=== PATIENT | female | born 1960 | race Caucasian/White ===

== ENCOUNTER 2018-06-28 02:57 | Inpatient (IN) ==
--- NOTE | 2018-06-28 03:34 | PROVIDER DOCUMENTATION ---
HPI-General Adult - General Chief Complaint: Post Op Complaint Stated Complaint: FEVER/VOMITING-POST OP FROM JUNE 10 Time Seen by Provider: 06/28/18 03:21 Source: patient Allergies/Adverse Reactions: Patient Allergies Allergy/AdvReac Type Severity Reaction Status Date / Time No Known Allergies Allergy Verified 06/28/18 05:20 Home Medications: Home Medication List Medication Instructions Recorded Confirmed Last Taken Type Levothyroxine Sodium 100 mcg PO QAM 08/08/17 06/28/18 09/20/17 History Oxybutynin Chloride 5 mg PO BID 08/08/17 06/28/18 09/20/17 History Aspirin 81 mg PO DAILY 09/21/17 06/28/18 09/19/17 History Acetaminophen 2 tab PO Q8HR 06/28/18 06/28/18 Unknown History Ferrous Sulfate [Iron] 1 tab PO DAILY 06/28/18 06/28/18 Unknown History Oxycodone HCl [Roxicodone] 1 tab PO Q6H PRN PRN 06/28/18 06/28/18 Unknown History Polyethylene Glycol 3350 [Miralax] 17 gm PO DAILY 06/28/18 06/28/18 Unknown History Promethazine [Phenergan] 12.5 mg PO Q6H PRN PRN 06/28/18 06/28/18 Unknown History Sennosides [Senna] 1 tab PO BID 06/28/18 06/28/18 Unknown History - History of Present Illness -Gen Adult Nature of Presenting Problems: 58 y/o female presents to the ED with complaint of fever up to 103 tonight. 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 Patient transferred to [facility] on 05/25/18 for further evaluation of postop abdominal pain then sent home. Patient reports that [facility] did not find anything to explain abdominal pain. Followed by surgeon, Dr. Delong and Dr. Colindres, , and Dr. Timmons in [place]. Patient currently denies abdominal pain, dysuria, productive cough. Location of Pain/Injury: reports: none Onset/Duration: reports: this evening Timing: reports: improving Associated Symptoms: reports: fever/chills Review of Systems - Adult - REVIEW OF SYSTEMS - ADULT Constitutional: reports: chills, fever Eyes: denies: discharge Ears, Nose, Mouth & Throat: denies: throat pain Cardiovascular: denies: chest pain Respiratory: reports: see HPI. denies: cough Gastrointestinal: reports: see HPI. denies: abdominal pain Genitourinary: denies: dysuria Musculoskeletal: reports: no symptoms reported Integumentary: reports: no symptoms reported Neurological: denies: headache/migraines Psychiatric: reports: anxiety Hematologic/Lymphatic: reports: no symptoms reported Allergic/Immunologic: reports: no symptoms reported All Other Systems: Reviewed and Negative Past History - Adult - PAST MEDICAL HISTORY-ADULT Review of Records: reports: Old Records Reviewed, Nursing Assessment Review, Medications Reviewed, Social history reviewed & non-contributory. Major Childhood Illnesses: reports: denies history Cardiovascular: reports: denies history Respiratory: reports: denies history Gastrointestinal: reports: denies history Musculoskeletal: reports: denies history Neurological: reports: denies history Psychiatric: reports: anxiety Endocrine/Immune: reports: denies history - PRIOR SURGERIES/PROCEDURES Surgical/Procedure History: reports: recent surgery, appendectomy, cholecystectomy, hysterectomy - IMMUNIZATION STATUS Childhood Immunizations: See Nurse Assessment Flu Vaccine: See Nurse Assessment Physical Exam-General - CONSTITUTIONAL General Appearance: alert, no apparent distress, obese - EYES Eyes: other (clear) - HEAD, EARS, NOSE, MOUTH & THROAT HENMT: moist mucous membranes - NECK Neck: non-tender, full range of motion, supple - RESPIRATORY Respiratory: no respiratory distress, no accessory muscle use, decreased breath sounds - CARDIOVASCULAR Cardiovascular: regular rate, rhythm - GASTROINTESTINAL (ABDOMEN) Abdominal Exam: non tender, soft. negative: guarding, rebound - MUSCULOSKELETAL Back Exam: normal inspection, no CVA tenderness Extremity: normal range of motion, non-tender Peripheral Pulses: radial (R): 2+, radial (L): 2+ - SKIN Integumentary: normal color, normal turgor, warm/dry - NEUROLOGIC Neurologic: grossly normal - PSYCHIATRIC Psych/Mental Status: anxious Progress - PLAN OF CARE/RESULTS Progress/Plan/Lab Results: Vital Signs - 8 hr 06/28/18 03:05 Temperature 100.8 F H Pulse Rate 105 H Respiratory Rate 22 Blood Pressure 145/78 O2 Sat by Pulse Oximetry 85 L Result Diagrams: 06/28/18 03:47 06/28/18 03:47 - XRAY 1 XRAY Study: Chest Impression: Abnormal XRAY Interpretation: LLL infiltrate - CONSULTS/PCP/HOSPITALIST Notification #1 *Consult/PCP/Hospitalist*: Dr. Lancaster, hospitalist Time Discussed: 06:10 Consult Disposition: Admit Departure - Departure Date of Disposition Decision: 06/28/18 Time of Disposition Decision: 06:18 DIAGNOSIS: Appendix carcinoma, Hypoxemia LLL pneumonia Qualifiers: Pneumonia type: due to unspecified organism Qualified Code(s): J18.1 - Lobar pneumonia, unspecified organism Disposition: ADMITTED INPATIENT 09 Certified Medical Emergency: Emergent Condition: Stable Referrals and Follow-Ups: Ric Timmons MD [Primary Care Provider] - - Critical Care Note This patient required my direct & personal management of CC.: No Attestation - Physician/ ABBEY Attestation Patient care was provided by Advanced Practice Provider:: No The physician spent face to face time with patient:: Yes Advanced Practice Provider documentation review:: Supervising physician onsite and consulted in the evaluation and care of this patient. The physician did have a face to face encounter with the patient.
[2018-06-28] MEDS ORDERED: DILAUDID IV ONE (04:15)
[2018-06-28] MEDS ORDERED: ZOFRAN IV ONE (04:15)
[2018-06-28 04:24] LABS: INR 1.3; PROTIME 17.2 Seconds (11.0-16.0)
[2018-06-28 04:25] LABS: BASO# 0.01 X1000 (0.0-0.2); BASO% 0.3 % (0.0-0.8); HEMATOCRIT 34.8 % (37.0-47.0); HEMOGLOBIN 10.5 g/dL (12.0-16.0); LYMPH# 0.15 X1000 (1.2-3.4); LYMPH% 4.3 % (20.5-51.1); MCH 26.2 PG (27-31); MCHC 30.2 g/dL (33-37); MCV 86.8 FL (81-99); MONO# 0.32 X1000 (0.11-0.59); MONO% 9.2 % (1.7-9.3); MPV 9.1 FL (7.4-10.4); NEUT% 86.2 % (42.2-75.2); PLT 190 X1000 (130-400); PTT 37.3 Seconds (22.3-41.8); RBC 4.01 XMIL (4.2-5.4); RDW 19.9 % (11.5-14.5); WBC 3.48 X1000 (4.8-10.8)
[2018-06-28] MEDS ORDERED: VANCOMYCIN 1 GM/NS 1 GM/250 ML IVPB IV ONE (04:27)
[2018-06-28] MEDS ORDERED: LEVAQUIN 750 MG/D5W 750 MG/150 ML IVPB IV ONE (04:27)
[2018-06-28 04:38] LABS: AGAP 12; ALBUMIN 3.2 g/dL (3.5-5.0); ALKALINE PHOSPHATASE 222 U/L (32-104); BUN 5 mg/dL (8-22); CALCIUM 8.2 mg/dL (8.8-10.2); CHLORIDE 103 mmol/L (98-107); COSMO 279; CREATININE 0.8 mg/dL (0.5-0.9); ESTIMATED GFR > 60; GLUCOSE 107 mg/dL (70-104); GOT 14 U/L (10-30); GPT < 5 U/L (10-36); POTASSIUM 3.2 mmol/L (3.5-5.1); SODIUM 141 mmol/L (136-145); TCO2 26 mmol/L (25-35); TOTAL BILIRUBIN 0.72 mg/dL (0.20-1.00); TOTAL PROTEIN 6.3 g/dL (6.3-8.3)
--- NOTE | 2018-06-28 05:44 | Diag Imaging Result Doc PS360 ---
EXAM: CHEST-2 VIEWS HISTORY: fever TECHNIQUE: Chest two views COMPARISON: 02/05/2013 FINDINGS: The lungs are well expanded. The heart is not enlarged. The vessels are not distended. There is a right jugular portacatheter. No pneumothorax. There are left basilar infiltrates. There is a small to moderate-sized left pleural effusion with a small right pleural effusion. Mild to moderate scoliosis. IMPRESSION: Left basilar infiltrates with pleural effusions Electronically signed by Eligio Tripathi 06/28/2018 5:42 AM
[2018-06-28 07:39] LABS: URINE SOURCE CLEAN CATCH
[2018-06-28 07:45] LABS: BILIRUBIN URINE NEGATIVE (NEGATIVE); BLOOD URINE MODERATE (NEGATIVE); COLOR YELLOW; GLUCOSE URINE NEGATIVE (NEGATIVE); KETONE URINE 10 mg/dL (NEGATIVE); LEUKOCYTES URINE MODERATE (NEGATIVE); NITRITE URINE POSITIVE (NEGATIVE); PROTEIN URINE 50 mg/dL (NEGATIVE); SP GRAVITY URINE 1.018; TURBIDITY URINE HAZY (CLEAR); UROBILINOGEN URINE 3 mg/dL (NORMAL)
[2018-06-28 07:46] LABS: UR EPITHELIAL CELLS <10 /HPF (<10); URINE BACTERIA 4+ /HPF; URINE WBC TNTC /HPF (<10)
[2018-06-28] MEDS ORDERED: VANCOMYCIN IV PER PHARMACY MISC SCH (08:10)
[2018-06-28] MEDS ORDERED: TYLENOL PO PRN (08:10)
--- NOTE | 2018-06-28 08:44 | EKG Report ---
Test Performed on : 06/28/2018 03:19:30 AM Test Reason : ED. NO EKG ORDER FOR MUSE Blood Pressure : / mmHG Vent. Rate : 104 BPM Atrial Rate : 104 BPM P-R Int : 154 ms QRS Dur : 074 ms QT Int : 342 ms P-R-T Axes : 046 -06 046 degrees QTc Int : 449 ms Sinus tachycardia. Possible Left atrial enlargement Low voltage QRS Possible Inferior infarct , age undetermined Abnormal ECG No previous ECGs available Unconfirmed Result
[2018-06-28] MEDS: NS 1,000 ML IV SCH (08:54)
[2018-06-28] MEDS: ZOSYN 3.375 GM in NS 50 ML IV SCH ×3 (08:55→20:58)
[2018-06-28] MEDS ORDERED: LOVENOX SUBQ SCH (09:00)
[2018-06-28] MEDS ORDERED: PRILOSEC PO SCH (09:00)
[2018-06-28] MEDS ORDERED: VANCOMYCIN 2,500 MG in NS 500 ML IV ONE (09:00)
[2018-06-28] MEDS ORDERED: MIRALAX PO SCH (09:00)
[2018-06-28] MEDS ORDERED: SENOKOT PO SCH (09:00)
[2018-06-28] MEDS ORDERED: SYNTHROID PO SCH (09:00)
[2018-06-28] MEDS: ZOFRAN IV PRN (09:30)
[2018-06-28] MEDS: ASPIRIN PO SCH (09:33)
[2018-06-28] MEDS ORDERED: POTASSIUM CHLORIDE 40 MEQ/SWI 40 MEQ/100 ML IVPB IV ONE (10:30)
--- NOTE | 2018-06-28 11:40 | Diag Imaging Result Doc PS360 ---
EXAM: CT THORAX/ABD/PELVIS W/CON 06/28/2018 HISTORY: history of appendiceal cancer, pna TECHNIQUE: This exam was performed using automated exposure control, adjustment of mA or kV according to patient size, and/or use of iterative reconstruction technique. COMMENT: Thorax: There are no previous thoracic studies. The abdomen is compared with the previous examination of 06/22/2018. There is no evidence of significant adenopathy. The aorta is not distended and there is no evidence of dissection. There is a left pleural effusion. There is dependent atelectasis in both lower lobes more so in the left lower lobe. The possibility of pneumonia cannot be excluded. ABDOMEN: Atelectasis in the left lower lobe was also present at the time the previous study of 06/22/2018 as there was atelectasis in the posterior and medial portions of the right lower lobe in the costophrenic sulcus. There is splenomegaly the spleen measuring almost 14.7 cm in transverse dimension. This is not changed significantly since the previous study. There is ascites as there was previously. There is some intrahepatic biliary dilatation as there was previously. There is nodular enlargement of the medial lobe of the right adrenal gland which has not changed significantly. There is some stranding in the pararenal spaces. There is no evidence of abdominal aortic aneurysm. The liver is stable in appearance. There is oral contrast throughout the colon and small bowel. The graft pelvis: There is some fluid density within the inferior abdominal and pelvic subcutaneous fat in the midline probably related to the incision and likely due to a seroma, the CT density being less than 6 Hounsfield units. The urinary bladder is not distended. There has been hysterectomy. There is scoliosis of the lumbar spine with convexity to the left. The regional skeleton is stable in appearance. IMPRESSION: 1. Left pleural effusion. Bilateral lower lobe atelectasis versus pneumonia. 2. Ascites. 3. Intrahepatic biliary dilatation, stable. 4. Right adrenal nodule, stable. 5. Postsurgical changes with seroma. Electronically signed by Shad Lopez 06/28/2018 11:37 AM
[2018-06-28 11:56] LABS: IRON SATURATION 7 %; TIBC 240 ug/dL; TOTAL IRON 17 ug/dL (49-151); UNBOUND IRON 223 ug/dL (112-346)
[2018-06-28 12:29] LABS: FERRITIN 95 ng/mL (13-150)
[2018-06-28] MEDS ORDERED: VENOFER 200 MG in NS 150 ML IV ONE (12:51)
--- NOTE | 2018-06-28 12:52 | HISTORY AND PHYSICAL ---
PRIMARY CARE PHYSICIAN: Dr. Ric Timmons PRIMARY ONCOLOGIST HERE: Dr. Delores Capone PRIMARY ONCOLOGIST AT [facility]: Dr. Nuzhat Delong who also performed a significant surgery called HIPEC on 06/10/2018. Dr. Nuzhat Delong's contact information is [phone]. Apparently Dr. Delong will also be trying to keep in touch with us. She is aware of the patient's admit. PRIMARY GENERAL SURGEON: Dr. Cleveland Timmons who removed her appendix. CHIEF COMPLAINT: Fever of 103, vomiting and diarrhea. HISTORY OF PRESENT ILLNESS: Ms. Makeda Donaldson is a 58-year-old female with a medical history of appendiceal cancer with appendectomy by Cleveland Timmons and diagnosis in 07/2017. She was then referred to Delores Capone, had 14 rounds of chemotherapy treatment performed, was seen by Dr. Nuzhat Delong who then performed on 06/10/2018 an HIPEC which stands for heated or hyperthermic intraperitoneal chemotherapy at [facility]. Apparently this is a really big surgery, it can take up to 12 hours. She is only the 103rd person to have this surgery or procedure performed at [facility]. Apparently this procedure or surgery is not even performed at [facility]. There is supposed to be a 6 to 8 week recovery period that consists of some abdominal discomfort and nausea. She was admitted to [facility] from 06/10/2018 to 06/17/2018. Her incision is from the midline top of the abdomen all the way down to nearly the pelvic area with currently just Steri-Strips. The sites is very dry and no signs or symptoms of infection. She has positive bowel sounds in her abdomen. Her abdomen is also soft. She states that she was informed if she had fever to seek medical attention. Also noted, she came here on 06/22/2018 with some right lower quadrant abdominal pain, and she was transferred from our ER to [facility] where she stayed from 06/22/2018 to 06/24/2018. Pain improved. There apparently was some residual fluid in the abdomen on an ultrasound there, and she was discharged home. Around 0130 this morning, she woke up with a fever of 103. She states that she has been getting short of breath but not coughing up anything. She does not even have a cough. She also has been having severe nausea with emesis around 1 to 2 times per day that is orange to yellow in color. She has been having diarrhea, around 3 or 4 bowel movements per day that is anywhere from brown to black in color, but she does take iron supplementation. She has had poor p.o. intake due to the intractable nausea. She has tried things like mostly banana popsicles, small thin slices of deli ham, peaches in a fruit cup, scrambled eggs, just small soft things, and she is allowed a GI soft diet. Here, workup revealed that she has been afebrile, but around 3:00 this morning, her temperature was 100.8 on admission, and that was after taking 650 mg of Tylenol around 0130 when she woke up with a fever. She does actually have a significant amount of bacteria in the urine, so it appears she has urinary tract infection which we are waiting on a culture. Lactate is normal. White count is normal, or a little bit low. She will be given IV fluid hydration, and she is being started on broad spectrum antibiotics. Flu was negative. Vitals are stable, and she will be admitted to the medical floor for further treatment and workup. PAST MEDICAL HISTORY: 1. Appendiceal cancer, status post appendectomy and chemotherapy x14. Also HIPEC at [facility]. 2. Hypothyroidism. 3. Iron deficiency anemia. 4. Anxiety. 5. Claustrophobia. 6. Urinary incontinence. PAST SURGICAL HISTORY: 1. Cholecystectomy. 2. Hysterectomy. 3. Appendectomy in 07/2017. 4. Heated hyperthermic intraperitoneal chemotherapy, in short is called HIPEC, a very rare, infrequent surgical chemotherapy that is performed. She just had on 06/10/[address] Nuzhat Delong. 5. Right chest port placed in 08/2017. SOCIAL HISTORY: Denies tobacco, alcohol or illicit drug use. Her of 41 years is at the bedside. They did not have any kids together. They have 3 grown godchildren. 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. For 2 months prior to having surgery, she walked 20 minutes per day for at least 2 months. FAMILY HISTORY: Mother had congestive heart failure and coronary artery disease, at 88. Father had myocardial infarction and at 58. One sister from leukemia. One brother with severe stroke and at 70. Another brother with congestive heart failure which he at 40 from, but he was severely obese. Several other siblings that had diabetes type 2 and heart disease. She was the youngest of 8 siblings. ALLERGIES: No known drug allergies. HOME MEDICATIONS: 1. Tylenol 1000 mg p.o. every 8 hours p.r.n. 2. Aspirin 81 mg p.o. daily. 3. Iron 325 mg p.o. daily at lunch. 4. Synthroid 100 mcg p.o. daily. 5. MiraLAX 17 g p.o. daily, but she has not been taking this due to diarrhea. 6. Oxybutynin chloride 5 mg p.o. twice daily. 7. Phenergan 12.5 mg p.o. every 6 hours p.r.n. 8. Oxycodone HCl 5 mg p.o. every 6 hours p.r.n. 9. Senokot 8.6 mg p.o. twice daily, but she has not been taking this, either. REVIEW OF SYSTEMS: A 14-point review of systems are complete, and all were negative except for those mentioned in the HPI. She does have a little bit of right lower quadrant tenderness from time to time. Denies any chest pain but states that fever started around 1:30 this morning, and she is complaining of diarrhea as well with nausea and vomiting. PHYSICAL EXAMINATION: VITAL SIGNS: Temperature is 98.6, heart rate 91, respiratory rate 16, blood pressure 114/62, O2 saturation is 99% on 3 L. GENERAL: Ms. Makeda Donaldson is a 58-year-old female. She is in no acute distress. She is able to answer questions appropriately. HEENT: Normocephalic and atraumatic. Pupils are equal, round and reactive to light. Extraocular movements were intact. Mucous membranes are dry. NECK: Trachea midline. CARDIOVASCULAR: S1, S2. Regular rate and rhythm. No rubs, gallops or murmurs. She has 1+ pitting edema in the lower extremities, 2+ dorsalis pedal pulses, 2+ radial pulses. Negative JVD or carotid bruits. PULMONARY: Clear to auscultation with some mild, very fine rhonchi in the left lower lobe posteriorly. No accessory muscle use or work of breathing noted. She is on 3 L and saturating very well at 99%, tolerating that well. GASTROINTESTINAL: Soft, mild tenderness in the right lower quadrant. Midline abdominal incision with Steri-Strips, with incision well approximated. No dehiscence and is healing very well. EXTREMITIES: Moves all extremities equally with full range of motion. NEUROLOGICAL: Alert and oriented x4. Follows commands. Sensory is intact. SKIN: Warm, dry and intact except for midline abdominal incision which is the full length of the abdomen with Steri-Strips intact, well approximated, no dehiscence, healing very well. DIAGNOSTIC DATA: White blood cells 3000, hemoglobin 10, hematocrit 34, platelet count 190. INR is 1.30. PTT is 37.3. Sodium is 141, potassium 3.2, BUN is 5, creatinine 0.8, glucose 107, calcium 8.2, bilirubin is 0.72, AST is 14, ALT is less than 5. Albumin 3.2. Lactate is 0.8. Urinalysis with 50 protein, 10 ketones, moderate blood, positive nitrites, 3 urobilinogen, moderate leukocytes, too numerous to count white blood cells, 10 to 20 red blood cells and 4+ bacteria. IMAGING: Chest x-ray with left basilar infiltrates with pleural effusions. EKG shows sinus tachycardia with rate of 104, QTC of 449. ASSESSMENT AND PLAN: 1. History of appendiceal cancer, appendectomy in 07/2017. She did heated hyperthermic intraperitoneal chemotherapy, or HIPEC, at [facility] on 06/10/2018 and 14 chemotherapy treatments that she has completed. Dr. Delores Capone managed chemotherapy treatments. Dr. Nuzhat Delong performed the HIPEC at [facility] on 06/10/2018. Dr. Cleveland Timmons diagnosed and did the surgery of appendectomy in 07/2017. Consult Dr. Delores Capone. We will be getting an abdominal CT with oral contrast. She still has some right lower quadrant abdominal tenderness. Apparently at [facility], she was seen between 06/22/2018 and 06/24/2018 with the right lower quadrant abdominal tenderness, and the family reports that there was just some residual fluid in the abdomen. Her [facility] stay for the surgery was from 06/10/2018 to 06/17/2018, and old records have been requested. Her oncologist, Neto Delong at [facility], phone number is [phone], and she is also aware of the patient's admission and will be checking up on her. The midline abdominal incision is with Steri- Strips, it is healing well. There are no signs or symptoms of infection. There are no areas of dehiscence. Her diet prescribed to her from [facility] is GI soft diet which we will continue. She does have some mild nutritional deficit, as she has not been able to eat very well due to the nausea, vomiting and diarrhea that she has had on a daily basis. We will get stool samples. We will alternate between Zofran and Phenergan. She also complained of the stool being black in color, so we will get a sample to rule out for occult blood. 2. Complaints of fever. No signs of sepsis. White blood cell count normal. She has left lower lobe pneumonia along with the urinary tract infection. She has been started on some IV fluids, vancomycin and Zosyn. Tylenol as needed for fever. We will wait to see results of cultures on the urine, the blood, and if she can produce a sputum sample that has been ordered as well and stool studies. 3. Iron deficiency anemia. Her hemoglobin is 10, hematocrit 34. She has had a little bit of complaint of black stools, but she is on iron supplementation at home. We will go ahead and sample the stool to rule out any blood in that. We will do IV Protonix because she does have intractable nausea and vomiting. Anemia labs have been ordered. 4. Hypokalemia, likely secondary to vomiting and diarrhea, but we will give 40 IV today. 5. Mild protein calorie malnutrition. We will order a prealbumin for in the morning. Do a nutritional consult which is likely due because she has not been able to eat very well. She denies any weight loss at this time. She is on a GI soft diet. 6. DVT prophylaxis with Lovenox. 7. The patient and family are requesting Dr. Ric Timmons be verbally notified of the patient's admit, which I will do. Dictated by HUSAM Gresham for Sanchez Gaona MD Addendum: Patient seen and examined by myself. Agree with HUSAM note. It reflects my assessment and plan. Patient is being admitted to hospital for fever. We do not know the source of infection at this point. Will order blood and urine culture. Will start broad spectrum antibiotics and will order a CT chest, abdomen and pelvis. Will monitor patient closely. cc: HUSAM Gresham MD [facility]ITAL[facility]ina
[2018-06-28] MEDS: PROTONIX IV SCH ×2 (13:24→20:56)
[2018-06-28] MEDS: PHENERGAN IV PRN ×3 (13:24→20:58)
[2018-06-28] MEDS: DITROPAN PO SCH ×2 (13:25→20:57)
--- NOTE | 2018-06-28 13:27 | HEMO/ONC CONSULTATION ---
DATE: 06/28/2018 This is HUSAM Saunders dictating for Dr. Delores Capone MD. REFERRING PHYSICIAN: Dr. Lawrence. REASON FOR REFERRAL: Appendiceal carcinoma, known to our service. HISTORY OF PRESENT ILLNESS: Ms. Makeda Donaldson is a very pleasant 58-year-old woman with appendiceal carcinoma who is admitted to [facility] for left lower lobe pneumonia. She reports a fever as high as 103 degrees Fahrenheit. She recently underwent a resection at [facility] on 06/10/2018. She is recovering well from her surgery. She reports that she was admitted last weekend for uncontrolled nausea, vomiting and pain, but that has since resolved. Her kay have been removed and the incision is healing well. She is going to be admitted on observation with IV antibiotic coverage including vancomycin and Zosyn. She is also on Lovenox for DVT prophylaxis. The Hematology Oncology Service was placed on consult for further workup and treatment options. PAST MEDICAL HISTORY: Appendiceal carcinoma, bladder cancer, hypothyroidism, constipation. PAST SURGICAL HISTORY: Tubal ligation, cholecystectomy, partial abdominal hysterectomy, laparoscopic appendectomy, port placement. FAMILY HISTORY: Positive for leukemia in her sister. No other malignancies or hematological disorders. SOCIAL HISTORY: The patient denies alcohol, tobacco or illicit drug use. 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 ALLERGIES: No known drug allergies. MEDICATIONS: As per medication sheet. REVIEW OF SYSTEMS: As per HPI. Otherwise a 12-point review of systems was negative. PHYSICAL EXAMINATION: General: The patient appears to be in no apparent distress. Vital Signs: Blood pressure 132/71, pulse 94, respirations 16, temperature 98.3 degrees Fahrenheit, O2 saturation 98% on room air. HEENT: Head is normocephalic and atraumatic. Mucosa is pale and moist. Pupils reactive to light. Oropharynx clear. Neck: Supple. No lymphadenopathy or thyromegaly. Cardiovascular: S1, S2. Regular rate and rhythm. No murmurs noted. Respiratory: Decreased breath sounds to the left lower lobe. No rhonchi, rales or wheezing noted. Gastrointestinal: Soft, tender, nondistended. Positive for bowel sounds. Midline surgical incision healing well with Steri-Strips applied. No evidence of bleeding. Neurologic: Gait not assessed. Extremities: No edema. Skin: Pale. LABORATORY DATA: Total white blood cell count 3.48, hemoglobin 10.5, hematocrit 34.8, platelet count 198,000. Iron 17, TIBC 240, iron saturation 7, ferritin 95. Total bilirubin 0.72, AST 14, ALT less than 5, alkaline phosphatase 222, albumin 3.2, total protein 6.3, sodium 141, potassium 3.2, chloride 103, BUN 5, creatinine 0.8, glucose 107, calcium 8.2, phosphorus 2.8, magnesium 1.7. ASSESSMENT AND PLAN: 1. Appendiceal carcinoma status post 14 cycles of FOLFOX, completed an May of 2018. She underwent a resection at [facility] by Dr. Jaya Zarate on 06/10/2018. She has a follow up at [facility] on 07/02/2018. 2. Left lower lobe pneumonia. Agree with vancomycin and Zosyn as well as cultures. 3. Deep venous prophylaxis. Agree with Lovenox 40 mg subcutaneous daily. 4. Anemia secondary to iron deficiency. Iron saturation is 7%. We will give Venofer intravenous. Thank you for this consultation and allowing us to take part in the care of this patient. We will follow along with you. cc: Delores Capone MD I have seen and examined the patient and the above note reflects my history, physical, assessment and plan. Delores Capone MD [facility]
[2018-06-28] MEDS: OXY IR PO PRN ×2 (14:44→20:57)
[2018-06-28] MEDS: DUONEB (A & A) INH PRN (19:48)
[2018-06-28] MEDS: SODIUM CHLORIDE 0.9% INJ PRN (20:57)
[2018-06-28] MEDS: CARAFATE LIQUID PO SCH (20:57)
[2018-06-29] MEDS: NS 1,000 ML IV SCH ×3 (02:06→22:25)
[2018-06-29] MEDS: ZOSYN 3.375 GM in NS 50 ML IV SCH ×4 (02:07→20:20)
[2018-06-29] MEDS: CARAFATE LIQUID PO SCH ×2 (02:25→09:55)
[2018-06-29] MEDS: VANCOMYCIN 2,000 MG in NS 500 ML IV SCH ×2 (03:39→22:25)
[2018-06-29] MEDS: OXY IR PO PRN ×4 (03:39→22:25)
[2018-06-29] MEDS: SYNTHROID PO SCH (06:18)
[2018-06-29 06:46] LABS: BASO# 0.02 X1000 (0.0-0.2); BASO% 0.6 % (0.0-0.8); EOS# 0.02 X1000 (0.0-0.7); EOS% 0.6 % (0.0-10.0); HEMATOCRIT 23.4 % (37.0-47.0); HEMOGLOBIN 6.6 g/dL (12.0-16.0); IMM GRAN# 0.02 X1000 (0.0-0.04); IMM GRAN% 0.6 % (0.0-0.5); LYMPH# 0.42 X1000 (1.2-3.4); LYMPH% 11.8 % (20.5-51.1); MCH 25.1 PG (27-31); MCHC 28.2 g/dL (33-37); MONO% 16.9 % (1.7-9.3); MPV 9.2 FL (7.4-10.4); NEUT# 2.47 X1000 (1.4-6.5); NEUT% 69.5 % (42.2-75.2); PLT 194 X1000 (130-400); RBC 2.63 XMIL (4.2-5.4); RDW 19.4 % (11.5-14.5); WBC 3.55 X1000 (4.8-10.8)
[2018-06-29 06:55] LABS: HEMOGLOBIN A1C 4.5 % (4.8-6.0)
[2018-06-29 06:56] LABS: AGAP 11; ALB/GLOB RATIO 0.9; ALBUMIN 2.7 g/dL (3.5-5.0); ALKALINE PHOSPHATASE 183 U/L (32-104); BUN 6 mg/dL (8-22); CALCIUM 7.8 mg/dL (8.8-10.2); CHLORIDE 107 mmol/L (98-107); COSMO 278; CREATININE 0.7 mg/dL (0.5-0.9); ESTIMATED GFR > 60; GLUCOSE 84 mg/dL (70-104); GOT 13 U/L (10-30); GPT < 5 U/L (10-36); MAGNESIUM 1.7 mg/dL (1.5-2.7); PHOSPHORUS 2.7 mg/dL (2.7-4.5); POTASSIUM 3.6 mmol/L (3.5-5.1); SODIUM 141 mmol/L (136-145); TCO2 23 mmol/L (25-35); TOTAL BILIRUBIN 0.48 mg/dL (0.20-1.00); TOTAL PROTEIN 5.6 g/dL (6.3-8.3)
[2018-06-29 08:01] LABS: PREALBUMIN 3.5 mg/dL (20-40)
[2018-06-29 08:02] LABS: FREE T4 1.2 ng/dL (0.93-1.70); TSH 3.96 uIUmL (0.27-4.20)
[2018-06-29] MEDS: PROTONIX IV SCH ×3 (09:53→23:45)
[2018-06-29] MEDS: SODIUM CHLORIDE 0.9% INJ SCH (09:54)
[2018-06-29] MEDS: ASPIRIN PO SCH (09:54)
[2018-06-29] MEDS: DITROPAN PO SCH ×2 (09:54→20:21)
[2018-06-29] MEDS: PHENERGAN IV PRN ×3 (10:08→18:31)
[2018-06-29 11:12] LABS: HEMATOCRIT 24.9 % (37.0-47.0)
--- NOTE | 2018-06-29 13:07 | PROGRESS NOTE ---
DATE: 06/29/2018 SUBJECTIVE: Ms. Makeda Donaldson is a 58-year-old female. She is in no acute distress. She is able to answer questions appropriately. She states she actually feels a little bit better than she did yesterday. The abdominal pain has moved from right to mid lower quadrant and tenderness. She still continues to have nausea but that is also improved as well. Denies any fever or chills or any other type of pain. Denies shortness of breath. She also states she is still continuing to have some black stools. OBJECTIVE: Vital signs: Temperature 97.9, heart rate 89, respiratory rate 18, blood pressure 131/68, O2 saturation 100% on 2 L nasal cannula and 92% on room air. General: Ms. Makeda Donaldson is a 58-year-old female. She is in no acute distress. She is resting comfortably in bed, was a little drowsy from receiving her pain medicine. Able to answer questions appropriately. Cardiovascular: S1, S2. Regular rate and rhythm. No rubs, gallops, or murmurs. She has 1+ pitting edema in the lower extremities, +2 dorsalis and radial pulses. Negative for JVD and carotid bruits. Pulmonary: Clear to auscultate bilateral breath sounds. No accessory muscle use or work of breathing noted, tolerating 2 L nasal cannula. GI: Tender in the right lower to mid quadrant with palpation. Positive bowel sounds x4. Midline incision dry, intact, well-approximated, no signs or symptoms of infection. Neurologic: A and O x3, follows commands. Sensory is intact. Skin: Warm, dry, intact. Incision intact on the midline abdomen, but pale. LABORATORY DATA: Hemoglobin and hematocrit 7 and 24.9, white blood cells 3, platelet count 194. Sodium 141, potassium 3.6, BUN 6, creatinine 0.7, glucose 84. Hemoglobin A1c is 4.5. Calcium 7.8. Phosphorus 2.7. Magnesium 1.7. Iron level 17. Bilirubin 0.48, AST 13, ALT less than 5, alkaline phosphatase is 183, albumin 2.7, prealbumin is 3.5. Triglycerides 75, total cholesterol 100, HDL 40. Folate is 31. TSH 3.96, free T4 is 1.20. MICRO RESULTS: Stool positive for occult blood. C. difficile toxin and antigen negative. Stool culture negative. Stool white blood cells few. Sputum is pending. Urine culture no growth. Influenza negative. Peripheral stick blood culture no preliminary results yet. The preliminary blood culture from the Port-A-Cath is resulting with gram-negative rods. IMAGING: For today none, but yesterday had chest, abdomen and pelvic CT showed a left pleural effusion, bilateral lower lobe atelectasis versus pneumonia, ascites, intrahepatic biliary dilatation which is stable, right adrenal nodule which is stable, postsurgical changes with seroma. ASSESSMENT AND PLAN: 1. 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 She has received 14 chemotherapy treatments followed by Dr. Delores Capone here and then at [place] Dr. Nuzhat Delong, whose contact number is . There is suppose to be a followup appointment with her on I believe Sunday or Sunday. 2. Likely gastrointestinal bleed versus severe gastritis with right lower to mid abdominal quadrant tenderness and persistent nausea with black stools. Stool is positive for occult blood. Her hemoglobin dropped from 10 down to 7 overnight. She is pale- looking. Her vital signs are stable. She is on Protonix and Carafate. Will switch her from a GI soft to a clear liquid diet and consult Dr. Guillen with Gastroenterology to evaluate for EGD or check for H. pylori. She will receive 1 unit of packed red blood cells. 3. Iron-deficiency anemia. Yesterday, she received Venofer 200 mg 1 time dose with iron level 17, total iron-binding capacity 240, saturation 7, unsaturation 223, ferritin 95, folate 31, vitamin B12 is 474. 4. Left lower lobe pneumonia. Nebulizers as needed, oxygen as needed. Sputum culture just sent. She is on vancomycin and Zosyn for now. 5. Urinary tract infection. Urine had nitrites. She had 4+ bacteria but so far the culture is actually coming back negative. There were urinary symptoms of burning, and again she is on a gram-negative coverage antibiotic, which we will continue for now, and will continue with some IV fluids as well. 6. Right Port-A-Cath culture is showing gram-negative rods. The peripheral culture is not showing anything at this point. She did have fever a little bit last night up to 100.5, around 7 last night was her last fever. So, Dr. Lewis is going to be consulted due to the multiple infections. She has been lactate normal. 7. More like a moderate or may be even severe protein calorie malnutrition. Her prealbumin was significantly low at 3.5 but her albumin level is 2.7. She has actually had to be changed over to a clear liquid diet due to the GI bleeding but hopefully once we find out what is going on we will be able to give her better nutrition and she will not be so nauseated and will not be having so many stools. Will also do a Nutritional consult. She should be able to be advanced to a regular diet once she is not throwing up. 8. Hypokalemia is resolved, it is up to 3.6 today after being given 40 of potassium chloride yesterday. 9. Deep venous thrombosis prophylaxis, sequential compression devices. Lovenox was discontinued due to the GI bleed. Dictated by HUSAM Gresham for Sanchez Gaona MD Addendum: Patient seen and examined by myself. Agree with HUSAM note. It reflects my assessment and plan. Patient blood cultures showed gram negative rods. Will continue with current antibiotics until we get final sensitivity. Will consult ID tomorrow. For drop in hemoglobin we have consulted GI who thinks this change in hemoglobin could be dilutional. No procedures needed at this time for her. Will continue to monitor. cc: HUSAM Gresham MD Christina Bailey, MD Heather Shah, MD MTDD
[2018-06-29] MEDS ORDERED: CARAFATE PO SCH (16:00)
--- NOTE | 2018-06-29 19:02 | GASTROENTEROLOGY CONSULTATION ---
DATE: 06/29/2018 REASON FOR CONSULTATION: Anemia. HISTORY OF PRESENT ILLNESS: Ms. Makeda Donaldson is a 58-year-old woman with past medical history significant for appendiceal carcinoma who is status post 14 cycles of FOLFOX and intraoperative hyperthermic intraperitoneal chemotherapy at [place] as well as a mastectomy on 06/10/2018 who presented with nausea, vomiting and fever. The patient reports having some postsurgical abdominal discomfort. However the day prior to admission she developed nonbloody, nonbilious emesis. She has also been having some diarrhea about 3 to 4 times a day with dark greenish brown stool. She is on iron supplementation. She does take aspirin 81 mg once a day. She denies any chest pain, shortness of breath, cough, hematochezia. She does have anemia per her at baseline for which her oncologist has considered transfusion in the past but has not required at this point. She has had a colonoscopy prior to her appendectomy prior to July 2017. No prior EGD. She denies any dysphagia or acid reflux. PAST MEDICAL HISTORY: History of appendiceal cancer status post appendectomy and 14 rounds of FOLFOX also Hypaque at [place] on 06/10/2018, hypothyroidism, iron deficiency anemia, anxiety, claustrophobia, urinary incontinence. PAST SURGICAL HISTORY: Cholecystectomy, hysterectomy, appendectomy, Hypaque, omentectomy, right chest port. SOCIAL HISTORY: She denies any smoking, alcohol or drug use. FAMILY HISTORY: Multiple family members with coronary artery disease and CHF. Sister of leukemia. No family history of GI malignancy otherwise. ALLERGIES: No known drug allergies. HOME MEDICATIONS: Tylenol, aspirin, iron, Synthroid, MiraLAX, oxybutynin, oxycodone, Senokot. REVIEW OF SYSTEMS: As per HPI otherwise 12 point review of systems is negative. PHYSICAL EXAMINATION: Vital Signs: Temperature 98.6 degrees, pulse 80, respiratory 18, blood pressure 138/65, O2 saturation 100% on 2 L nasal cannula. General: Patient is awake, alert, oriented, no acute distress. HEENT: Sclerae anicteric. Moist mucous membranes. Neck: Supple. No JVD. Cardiac: Regular rate and rhythm. No murmur. Lungs: Clear to auscultation bilaterally. Abdomen: With midline incision with Steri-Strips no dehiscence, minimal tenderness throughout. Bowel sounds are present. No rebound or guarding. Extremities: No clubbing, cyanosis, or edema. Neurologic: Nonfocal. LABS: White count of 3.55, hemoglobin 11.0 from 10.5 although she was 7.6 on 06/22 appears that the 06/28 hemoglobin is a spurious value, platelet count 194,000, INR of 1.3, sodium of 141, potassium 3.6, chloride 107, bicarb 23, BUN 6, creatinine 0.7, glucose 84, hemoglobin A1c 4.5, total bilirubin was 0.48, AST of 13, ALT of less than 5, alkaline phosphatase of 183, total protein 5.6, albumin 2.7, creatinine 3.5, folate at 31, vitamin B12 of 4074, iron 17, ferritin 95, iron saturation of 7%, lactate is 0.8. UA shows moderate amount of blood, positive nitrite, moderate leukocytes, 10 to 20 red blood cells. IMAGING: Chest x-ray shows left basilar infiltrate with pleural effusions. CT abdomen and pelvis with contrast shows left pleural effusion, bilateral lower lobe atelectasis versus pneumonia, ascites, intrahepatic biliary dilation which is stable, right adrenal nodule stable, postsurgical changes with seroma. ASSESSMENT PLAN: Ms. Makeda Donaldson is a 58-year-old woman with past medical history significant for appendiceal carcinoma status post 14 cycles of FOLFOX and recent hyperthermic intraperitoneal chemotherapy and omentectomy who presents with acute nausea, vomiting and fever. GI consulted for essentially chronic anemia however there was some concern for possible melena. I saw patient's stool at the bedside in the commode that showed brown greenish stool, no evidence of melena. She denies any hematemesis. She had nonbloody emesis yesterday. Her vital signs are normal. Her BUN to creatinine ratio is normal. Her CT did not show any evidence of retroperitoneal bleed. There is some intraabdominal fluid consistent with ascites and a small seroma with low Hounsfield units probable low-density fluid. Her bilirubin is also normal which makes hemolysis unlikely. Her anemia is likely secondary to chemotherapy. She is on iron at home. She does take aspirin. She does not have a past medical history of cardiac disease or hyperlipidemia, although she does have a strong family history of this. I would recommend stopping aspirin at this point, keep her on a PPI once to twice daily. We will continue to monitor for overt bleeding. I am reluctant to do a diagnostic EGD at this point without signs of overt bleeding or changes in her hemodynamic status, particularly since she had recent surgery. 1. Anemia, suspect related to chemotherapy. Continue iron replacement therapy. Continue PPI. Trend hemoglobin and hematocrit daily and transfuse as needed to maintain hemoglobin between 7 and 8. 2. Fever. She does have a positive urinalysis as well as blood cultures that are positive for gram-negative emile. She is on Zosyn. 3. Nausea, vomiting, likely in the setting of infection. Continue antiemetics as needed for nausea, vomiting. 4. Chronic abdominal pain. Analgesics as needed. 5. Appendiceal carcinoma followed by Dr. Capone. Appreciate recommendations. 6. She has left lower lobe atelectasis versus pneumonia. She denies any shortness of breath or cough. She is on antibiotics. I suspect that her gram-negative rods are likely urinary in etiology. 7. Protein calorie malnutrition. Albumin is 2.7, creatinine is 3.5. She is on GI soft diet, Ensure with meals. Appreciate dietitian recommendations. Thank you for this consult. Will follow with you. Please call with any questions or concerns. [facility]US[facility]ina
[2018-06-29 23:14] LABS: HEMATOCRIT 26.4 % (37.0-47.0); HEMOGLOBIN 7.7 g/dL (12.0-16.0)
[2018-06-30] MEDS: ZOSYN 3.375 GM in NS 50 ML IV SCH ×2 (02:17→08:13)
[2018-06-30] MEDS: PHENERGAN IV PRN ×2 (04:44→17:30)
[2018-06-30] MEDS: SYNTHROID PO SCH (06:07)
[2018-06-30 06:45] LABS: BASO# 0.03 X1000 (0.0-0.2); BASO% 0.7 % (0.0-0.8); EOS# 0.07 X1000 (0.0-0.7); EOS% 1.5 % (0.0-10.0); HEMATOCRIT 25.6 % (37.0-47.0); HEMOGLOBIN 7.5 g/dL (12.0-16.0); IMM GRAN# 0.03 X1000 (0.0-0.04); IMM GRAN% 0.7 % (0.0-0.5); LYMPH# 0.61 X1000 (1.2-3.4); LYMPH% 13.5 % (20.5-51.1); MCH 25.9 PG (27-31); MCHC 29.3 g/dL (33-37); MCV 88.3 FL (81-99); MONO# 0.85 X1000 (0.11-0.59); MONO% 18.8 % (1.7-9.3); MPV 9.1 FL (7.4-10.4); NEUT# 2.93 X1000 (1.4-6.5); NEUT% 64.8 % (42.2-75.2); PLT 189 X1000 (130-400); RDW 18.9 % (11.5-14.5); WBC 4.52 X1000 (4.8-10.8)
[2018-06-30 07:32] LABS: AGAP 9; ALBUMIN 2.8 g/dL (3.5-5.0); ALKALINE PHOSPHATASE 168 U/L (32-104); BUN 6 mg/dL (8-22); CALCIUM 7.9 mg/dL (8.8-10.2); CHLORIDE 110 mmol/L (98-107); COSMO 282; ESTIMATED GFR 57; GLUCOSE 88 mg/dL (70-104); GOT 14 U/L (10-30); GPT < 5 U/L (10-36); MAGNESIUM 1.8 mg/dL (1.5-2.7); PHOSPHORUS 2.6 mg/dL (2.7-4.5); POTASSIUM 3.3 mmol/L (3.5-5.1); SODIUM 143 mmol/L (136-145); TCO2 24 mmol/L (25-35); TOTAL BILIRUBIN 0.59 mg/dL (0.20-1.00); TOTAL PROTEIN 5.7 g/dL (6.3-8.3)
[2018-06-30] MEDS: DITROPAN PO SCH ×2 (08:14→20:18)
[2018-06-30] MEDS: PROTONIX IV SCH ×3 (08:14→20:18)
--- NOTE | 2018-06-30 10:40 | INFECTIOUS DISEASE CONSULT REP ---
DATE: 06/30/2018 CONCLUSION: The patient has a Klebsiella bacteremia. I think there are three possibilities as to the origin of the bacteremia. One would be from her Port-A-Cath. Another possibility would be from her pneumonia as seen on chest x-ray and finally, there is a possibility that it could have come from an intra-abdominal source in view of the fact that the patient has had intra-abdominal chemotherapy and surgeries. RECOMMENDATION: Since we do not know for sure where the origin of the bacteremia came from, my suggestion would be that we treat the patient for 2 weeks with an IV antibiotic. The organism is susceptible to Levaquin but since the patient had received Levaquin when she was at [place] and she still developed an infection with Klebsiella that, in vitro, is still susceptible to Levaquin, I think it would be best to choose another antibiotic. The one that I think we should use is Rocephin in a dose of 2 g IV every 24 hours. I would suggest giving the Rocephin through the Port- A-Cath in case the Port-A-Cath is the origin of the bacteremia. If for sure I knew that the Port- A-Cath was the source of the bacteremia, then I would suggest taking the Port-A-Cath out now because with gram-negative bacteremias, it is very difficult to clear them up if it is coming from a Port-A-Cath but since we do not know, I think it would be best to treat her and then to see what happens after that. If the bacteremia comes back, then I would suggest getting a CAT scan of the abdomen to see if there is any source in the abdomen that may have been the source of the bacteremia and if there is not, then remove the patient's Port-A-Cath. DISCUSSION: The patient, approximately 4 days ago, started having fever, vomiting, and diarrhea. She had cancer of the appendix. Dr. Cleveland Timmons performed the patient's appendectomy and it was discovered that she had cancer of the appendix. She went up to [place] and there, they did a procedure called HIPEC. The procedure involves opening up the abdomen and removing any cancerous tissue, and then installing warm chemotherapy in the abdomen, filling it up with it, and then closing the abdomen. Then the chemotherapy is drained out of the abdomen also. The laboratory studies thus far, the blood cultures are growing Klebsiella as mentioned above. The patient's CBC shows a white count of 4520, hemoglobin 7.5, and platelet count 189,000. CT scan of the abdomen, pelvis, and chest showed bibasilar infiltrates/atelectasis and ascites. Also, there is biliary dilatation. The patient's stool culture is negative and the stool is negative for Clostridium difficile antigen and toxin. The patient's urine culture is negative; therefore, eliminating that the urinary tract is the source of the bacteremia. Only 1 of 2 blood cultures was positive. For an organism like Klebsiella, even just 1 out of 2 blood cultures should be regarded as a definite bacteremia. Sputum culture thus far is negative. PAST MEDICAL HISTORY/REVIEW OF SYSTEMS: Eyes and Ears: She does wear glasses. She does not have any problem hearing. Neck: No pain with moving. Respiratory: No cough or shortness of breath. GI: The patient has been having vomiting and diarrhea. Genitourinary: No dysuria or flank pain. Bones, Joints, and Muscles: No swollen joints or muscle aches. Neurologic: No seizures. No loss of motor or sensory function. Integument: No rashes. 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 She has had a tubal ligation, a hysterectomy, and removal of the right ovary when she had her appendectomy. PREVIOUS HOSPITALIZATIONS AND OPERATIONS: She has had a hysterectomy, removal of the right ovary, appendectomy, tubal ligation, cholecystectomy, and placement of a right-sided Port-A-Cath. MEDICAL DISEASES: Positive for obesity, cancer of the appendix, and hypothyroidism. INFECTIOUS DISEASE HISTORY: Positive for pneumonia and UTI. FAMILY HISTORY: Positive for diabetes mellitus, hypertension, myocardial infarction, stroke, and cancer. SOCIAL HISTORY[place] . They have a dog as a pet. 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 She does not smoke cigarettes, drink alcoholic beverages, or abuse drugs. HOME MEDICATIONS: Include the following: The patient is on Synthroid, Zofran, oxybutynin, oxycodone, MiraLAX, Phenergan, and senna. PHYSICAL EXAMINATION: Vital Signs: Temperature is 99 degrees, pulse 81, respirations 20, blood pressure 83/57, patient is 5 feet 5 inches tall, and weighs 232 pounds. General: This is an obese, middle-aged female. She just does not look like she feels very good today. Head, Eyes, Ears, Nose, and Throat: She can hear my spoken words and see near objects. She does not have any white coating on her tongue. Neck: No pain with movement. Lungs: Clear to auscultation. Cardiovascular: Heart rate is regular. Abdomen: Soft but slightly tender. The patient's incision is intact. Neurologic: The patient is alert. She can move her extremities. She is able to ambulate. There is no tremor. Her sensation is intact to touch. Her memory as regarding her medical history is intact. Extremities: The patient has bilateral leg edema but no erythema. Thorax: The patient has a Port-A-Cath on the right side. The site is not swollen, tender, or erythematous. Integument: No rash noted Thank you for the consult. cc: Yousif Lewis MD
[2018-06-30] MEDS: NS 1,000 ML IV SCH (10:47)
[2018-06-30] MEDS: OXY IR PO PRN ×2 (10:47→18:41)
[2018-06-30] MEDS ORDERED: VENOFER 500 MG in NS 250 ML IV ONE (11:00)
--- NOTE | 2018-06-30 12:51 | PROVIDER PROGRESS NOTE ---
Progress Note SUBJECTIVE: No acute overnight events. No N/V/F. Abdominal pain at baseline. She reports generalize weakness. She had 2 bowel movements this morning; brown and solid to loose. OBJECTIVE: Last Vital Signs Temp 98.9 F 06/30/18 10:34 Pulse 76 06/30/18 10:34 Resp 22 06/30/18 10:34 BP 138/71 06/30/18 10:34 Pulse Ox 99 06/30/18 10:34 Height 5 ft 5 in Weight 232 lb 9.403 oz GEN: awake, alert, NAD HEENT: anicteric, MMM NECK: supple, no jvd PULM: decreased BS at left base, otherwise clear CV: RRR, no murmurs ABD: obese, midline incision healing well with steri-strips, minimal diffuse TTP, BS present EXT: minimal LE edema NEURO: nonfocal LABS 06/30/18 06/30/18 06:07 06:07 WBC 4.52 L Hgb 7.5 L Plt Count 189 Sodium 143 Potassium 3.3 L Chloride 110 H Carbon Dioxide 24 L BUN 6 L Creatinine 1.0 H Total Bilirubin 0.59 AST 14 ALT < 5 L Alkaline Phosphatase 168 H Total Protein 5.7 L Albumin 2.8 L BC with Kleb pneumo ASSESSMENT PLAN: Ms. Makeda Donaldson is a 58-year-old woman with metastatic appendiceal carcinoma status post 14 cycles of FOLFOX and recent HIPEC and omentectomy on 06/10 at [place] who presented with acute nausea, vomiting, and fever found to have K pneumoniae bacteremia. GI consulted for question GI bleeding given abdominal pain and dark stools. Hgb has been remained stable without signs of overt bleeding. She previously had NBNB emesis and today is having brown stools. Her anemia is chronic and likely related to chemotherapy. ID is now following for bacteremia. #Anemia: 2/2 chemotherapy - continue iron replacement therapy - continue PPI; recommend once daily therapy upon discharge for GI ppx - no plans for endoscopy at this time #K. pneumoniae bacteremia: on abx as per ID #N/V: resolved; secondary to infection: continue antiemetics prn #Appendiceal carcinoma followed by Dr. Capone; appreciate, recommendations. #She has left lower lobe atelectasis versus pneumonia. She is on antibiotics. #Protein calorie malnutrition. Albumin is 2.7, prealbumin is 3.5; She is on GI soft diet, ensure with meals. Appreciate dietitian recommendations. Will follow with you. Please call with questions
[2018-06-30] MEDS ORDERED: VANCOMYCIN IV PER PHARMACY MISC SCH (13:30)
--- NOTE | 2018-06-30 13:35 | PROGRESS NOTE ---
DATE: 06/30/2018 SUBJECTIVE: Patient reports feeling fine, no more febrile, denies any other complaints. OBJECTIVE: Temperature 98.9, heart rate 76, respiratory rate 22, blood pressure 138/71, O2 saturation 99% on room air. General: This is a chronically ill-looking 58-year-old female lying in bed in no acute distress. HEENT: Head is normocephalic, atraumatic. Neck: No JVD noted. No carotid bruits, no lymphadenopathy, no thyromegaly. Cardiovascular: S1, S2 heard. No murmurs, gallops, or rubs. Regular rate and rhythm. Respiratory: Clear bilaterally to auscultation. No work of breathing or using accessory muscles. Abdomen: Soft, mildly tender to palpation in the right lower to mid quadrant with palpation, bowel sounds present. No organomegaly. Mild midline incision dry and intact. Extremities: No clubbing, cyanosis, edema. Peripheral pulses present in both legs. Neurologic: Patient alert, oriented x3, moves 4 extremities. LABORATORY DATA: White cell count 4.52, hemoglobin 7.5, hematocrit 25.6, platelets 189,000, the potassium is 3.3, creatinine 1.0, phosphorus 2.6. ASSESSMENT AND PLAN: 1. Left lower lobe pneumonia. Patient clinically is feeling better. She is not reporting any shortness of breath. Blood cultures turns out positive for Klebsiella bacteremia. Considering that we are not completely sure according to Dr. Lewis of the source of infection. That could be pneumonia but also Port-A-Cath or coming from the gastrointestinal tract. Dr. Lewis has decided to start this patient on ceftriaxone 2 g IV q.24 hours and the medication is supposed to be given throughout the port. From infectious standpoint patient can be discharged tomorrow with IV antibiotics. We agreed with the plan. 2. Likely gastrointestinal bleed versus severe gastritis. Patient has not had any signs of bleeding. I think this anemia could be related to the chemotherapy. In any case patient is going to receive 1 more unit of blood and see how she does. 3. Iron deficiency anemia. Patient has been seen by Hematology and 200 mg of IV iron has been provided. 4. Protein-calorie malnutrition, will continue with the same management. 5. Deep vein thrombosis prophylaxis. Patient is on SCDs. cc: Sanchez Gaona MD
[2018-06-30] MEDS ORDERED: SODIUM PHOSPHATE 35 MMOL in NS 250 ML IV ONE (14:00)
[2018-06-30] MEDS: ROCEPHIN 2 GM in NS 50 ML IV SCH (16:29)
[2018-06-30] MEDS: VANCOMYCIN 2,000 MG in NS 500 ML IV SCH (17:44)
[2018-07-01] MEDS: PHENERGAN IV PRN ×6 (00:08→23:24)
[2018-07-01] MEDS: NS 1,000 ML IV SCH ×4 (00:09→20:37)
[2018-07-01] MEDS: OXY IR PO PRN ×4 (01:45→20:35)
[2018-07-01] MEDS: SYNTHROID PO SCH ×2 (05:48→06:17)
[2018-07-01] MEDS: PROTONIX IV SCH ×3 (06:17→20:36)
[2018-07-01 06:33] LABS: BASO# 0.02 X1000 (0.0-0.2); BASO% 0.6 % (0.0-0.8); EOS# 0.09 X1000 (0.0-0.7); EOS% 2.5 % (0.0-10.0); HEMATOCRIT 28.1 % (37.0-47.0); HEMOGLOBIN 8.6 g/dL (12.0-16.0); IMM GRAN# 0.04 X1000 (0.0-0.04); IMM GRAN% 1.1 % (0.0-0.5); LYMPH% 19.3 % (20.5-51.1); MCHC 30.6 g/dL (33-37); MCV 88.1 FL (81-99); MONO# 0.54 X1000 (0.11-0.59); MONO% 14.9 % (1.7-9.3); NEUT# 2.23 X1000 (1.4-6.5); NEUT% 61.6 % (42.2-75.2); PLT 178 X1000 (130-400); RBC 3.19 XMIL (4.2-5.4); RDW 18.7 % (11.5-14.5); WBC 3.62 X1000 (4.8-10.8)
[2018-07-01 07:16] LABS: AGAP 12; ALB/GLOB RATIO 0.9; ALBUMIN 2.8 g/dL (3.5-5.0); ALKALINE PHOSPHATASE 157 U/L (32-104); BUN 5 mg/dL (8-22); CHLORIDE 112 mmol/L (98-107); COSMO 291; CREATININE 0.9 mg/dL (0.5-0.9); ESTIMATED GFR > 60; GLUCOSE 90 mg/dL (70-104); GOT 14 U/L (10-30); GPT < 5 U/L (10-36); MAGNESIUM 1.8 mg/dL (1.5-2.7); PHOSPHORUS 3.7 mg/dL (2.7-4.5); POTASSIUM 2.8 mmol/L (3.5-5.1); SODIUM 148 mmol/L (136-145); TCO2 24 mmol/L (25-35); TOTAL BILIRUBIN 0.44 mg/dL (0.20-1.00); TOTAL PROTEIN 5.8 g/dL (6.3-8.3)
[2018-07-01] MEDS: DITROPAN PO SCH ×2 (08:24→20:35)
[2018-07-01] MEDS ORDERED: PERICOLACE PO PRN (10:07)
--- NOTE | 2018-07-01 10:59 | GASTROENTEROLOGY PROGRESS NOTE ---
DATE: 07/01/2018 SUBJECTIVE: Patient is resting in bed. She is feeling better. She denies any nausea, vomiting. She denies any fevers, rigors, chills. She is moving her bowels. She is passing gas. OBJECTIVE: Vital signs: Temperature 97.7, pulse rate of 79, respiratory rate of 20, blood pressure 142/67, saturating 93% on room air. Weight: Body weight of 232 pounds 9.4 ounces. BMI of 38 kg/m2. General Appearance: Obese, lying in bed, in no acute distress. HEENT: Pale conjunctiva. No icterus. Neck is supple. The abdomen is protuberant, soft. She has healing scar murray in the midline from recent surgery. No guarding or rebound. Extremities: No cyanosis or clubbing. Neurologic: She is alert, awake, oriented x3. DIAGNOSTIC STUDIES: Hemoglobin 8.6, hematocrit 28.1, white count 3.62, platelet count of 178,000. Sodium 140, potassium 2.8, chloride 112, bicarbonate 24, anion gap 12, BUN of 5, creatinine 0.9, glucose of 90, calcium is 8, phosphorus 3.7, magnesium 1.8. Total bilirubin is 0.44, AST 14, ALT less than 5, alkaline phosphatase 157, total protein 5.8, albumin of 2.8. IMPRESSION AND PLAN: 1. Metastatic appendiceal carcinoma status post 14 cycles of FOLFOX and recent hyperthermic intraperitoneal chemotherapy (HIPEC) omentectomy on 06/10/2018 at [place], where Dr. Delores Capone is following. 2. Nausea and vomiting have improved. I will continue to treat with IV antiemetics. 3. Left lower lobe atelectasis versus pneumonia. She is on antibiotics. 4. Protein-calorie malnutrition. She is on a GI soft diet and Ensure with meals. 5. Klebsiella pneumoniae bacteremia. She is on antibiotics per Infectious Disease. 6. Anemia. Continue to watch for now and transfuse as needed. She is on iron replacement therapy. 7. Gastrointestinal (GI) prophylaxes with proton pump inhibitors (PPIs). 8. Bowel regimen. We will start with Luba-Colace twice daily. The above plans were discussed with the patient, and all questions were answered. Please call us with any further questions. cc: Jorge Lobo MD
[2018-07-01] MEDS ORDERED: POTASSIUM CHLORIDE 60 MEQ in NS 500 ML IV ONE (11:07)
--- NOTE | 2018-07-01 11:52 | PROGRESS NOTE ---
DATE: 07/01/2018 SUBJECTIVE: The patient states that she is feeling much better today. She has no specific complaints. OBJECTIVE: Vital Signs: Blood pressure is 129/62, with a heart rate of 71, respirations are 16, temperature is 97.8 degrees, with room air saturations 97%. Cardiovascular: Regular rate and rhythm. S1 and S2 are appreciated. She has bilateral lower extremity edema with peripheral pulses palpable x4 extremities. Calves are nontender. Pulmonary: Breath sounds are clear with no increased work of breathing noted. Chest rises and falls symmetrically with respiration. Chest wall is nontender to palpation. Gastrointestinal: Abdomen is soft. She does have some tenderness to the right mid to lower quadrant, with midline incision dry and intact. Bowel sounds are present in all 4 quadrants. Neurologic: She is alert and oriented x3. Labs: WBC is 3.6, with hemoglobin 8.6, hematocrit 28.1, and platelets 178,000. Sodium is 148, potassium is 2.8, with a BUN of 5, creatinine 0.9, and a glucose of 90. ASSESSMENT/PLAN: 1. 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 She is currently being followed by Dr. Delores Capone and Dr. Nuzhat Delong at [facility]. We are aware. 2. Likely gastrointestinal bleed versus gastritis. We will continue to trend her hemoglobin and hematocrit. We will continue Protonix and monitor. 3. Left lower lobe pneumonia. We will continue her antibiotic coverage. Dr. Lewis is following and we appreciate his help. 4. Iron deficiency anemia. Hematology is following. 5. Protein calorie malnutrition. Continue with gastrointestinal soft diet and Ensure. 6. Klebsiella bacteremia. Continue with her current intravenous antibiotics. 7. Hypokalemia. We will supplement and trend electrolytes and replete as appropriate. Dictated by HUSAM Davison for Sanchez Gaona MD This chart was documented by, HUSAM Davison and accurately reflects the services performed, treatment plan and medical decisions as attested by the providers signature Sanchez Gaona MD. cc: HUSAM Davison MD
[2018-07-01] MEDS: ZOFRAN IV PRN (12:23)
[2018-07-01] MEDS: SODIUM CHLORIDE 0.9% INJ SCH ×2 (12:24→20:36)
[2018-07-01] MEDS: ROCEPHIN 2 GM in NS 50 ML IV SCH (12:24)
[2018-07-01] MEDS: CARAFATE LIQUID PO SCH ×4 (14:34→20:36)
--- NOTE | 2018-07-01 15:49 | INFECTIOUS DISEASE PROGRESS NO ---
DATE: 07/01/2018 PRESENT ILLNESS: The patient has a Klebsiella bacteremia. I think this could have arisen from her Port-A-Cath or from an intra-abdominal focus in view of the fact that the patient has had large abdominal procedure done at [place]. The patient appears to have pneumonia, but I doubt it is the source of the patient's Klebsiella bacteremia because the patient's sputum is growing methicillin-resistant Staph aureus. Therefore, the patient has a methicillin-resistant Staph aureus pneumonia. PHYSICAL EXAMINATION: Vital signs: Temperature is 97.8 degrees, pulse 71, respirations 16, blood pressure 129/62. General: This is an ill-appearing, obese, middle-aged female. She is in no acute distress. Head, eyes, ears, nose, and throat: She can hear my spoken words and see near objects. She does not have any white coating on her tongue. Neck: No pain with movement. Lungs: Clear to auscultation. Cardiac: Heart rate is regular. Abdomen: Soft and nontender. The patient's incision is intact. Thorax: The patient has a Port-A-Cath present on the right side. The site is not swollen or erythematous. Neurologic: The patient is alert. She can move her extremities. There is no tremor. LAB AND X-RAY: CBC for today shows a white count of 3,620, hemoglobin 8.6, and platelet count 178,000. Creatinine is 0.9. GFR is greater than 60. The patient's sputum grew methicillin- resistant Staph aureus. There is no radiographic study done today. ASSESSMENT AND PLAN: The patient has a Klebsiella bacteremia. I am going to continue Rocephin and once again the site could be from the Port-A-Cath or from the abdomen. Patient will be receiving vancomycin for the methicillin-resistant Staphylococcus aureus pneumonia and Rocephin for the Klebsiella bacteremia. Repeat blood cultures will be drawn tomorrow to see if the bacteremia has cleared. COMORBIDITIES: She has appendiceal cancer and she is receiving chemotherapy. Also, she has a Port-A-Cath in place which could be the source of infection, as well as the abdomen could be in view of the recent surgical procedures and chemotherapy. cc: Yousif Lewis MD
--- NOTE | 2018-07-01 16:44 | HEMO/ONC PROGRESS NOTE ---
DATE: 07/01/2018 SUBJECTIVE: Ms. Donaldson is sitting up in her hospital bed. She is actually rather nauseous and has actually just vomited prior to us entering the room. Otherwise, she has no acute complaints currently. VITAL SIGNS: Temperature 97.8 degrees, heart rate 71, respirations 16, blood pressure 129/62, O2 saturation 97% on room air. LABS AND STUDIES: White blood cells 3.62, hemoglobin 8.6, hematocrit 28.1, platelet count 178,000. Sodium 148, potassium 2.8, chloride 112, CO2 24, BUN 5, creatinine 0.9, glucose 90, alkaline phosphatase 157. OBJECTIVE: CV: Regular rate. Respiratory: Normal respiratory effort. Gastrointestinal: Abdomen is nondistended. Extremities: No edema. ASSESSMENT: 1. Appendiceal carcinoma status post 14 cycles of FOLFOX which she completed back in May of 2018. She is also now status post resection at [facility] with Dr. Jaya Zarate on 06/10/2018. She was due actually for follow up with a [facility] tomorrow, on 07/02/2018. Patient reports that she has spoken with [facility] and the plans for her to continue here and be treated, as [facility] cannot offer any other special treatments. The patient is in with postsurgical pneumonia as well as bacteremia. 2. Klebsiella bacteremia and methicillin-resistant Staphylococcus aureus pneumonia. She is currently being treated with IV antibiotics per the direction of Dr. Lewis from Infectious Disease. Continue per their recommendations and guidance. 3. Likely a gastrointestinal bleed versus gastritis. We will continue to monitor her hemoglobin closely. Transfuse as needed. She is on Protonix. 4. Electrolyte imbalances. Repletion per the primary team. Dictated by CHELLY Rivas for Delores Capone MD cc: Delores Capone MD I have seen and examined the patient and the above note reflects my history, physical, assessment and plan. Delores Capone MD [facility]
[2018-07-01] MEDS ORDERED: PERICOLACE PO SCH (21:00)
[2018-07-01] MEDS: VANCOMYCIN 2,000 MG in NS 500 ML IV SCH (23:24)
[2018-07-02] MEDS: CARAFATE LIQUID PO SCH ×4 (02:11→21:00)
[2018-07-02] MEDS: PROTONIX IV SCH ×3 (02:11→23:30)
[2018-07-02] MEDS: PHENERGAN IV PRN ×4 (03:56→20:59)
[2018-07-02] MEDS: OXY IR PO PRN ×3 (05:05→20:59)
[2018-07-02] MEDS: SYNTHROID PO SCH ×2 (05:07→07:29)
[2018-07-02 06:43] LABS: HEMATOCRIT 28.4 % (37.0-47.0); HEMOGLOBIN 8.7 g/dL (12.0-16.0); MCH 27.6 PG (27-31); MCHC 30.6 g/dL (33-37); MCV 90.2 FL (81-99); RBC 3.15 XMIL (4.2-5.4); WBC 4.36 X1000 (4.8-10.8)
[2018-07-02 06:58] LABS: POTASSIUM 3.1 mmol/L (3.5-5.1)
[2018-07-02] MEDS: ZOFRAN IV PRN ×2 (08:28→14:39)
[2018-07-02] MEDS: DITROPAN PO SCH ×2 (08:33→20:59)
[2018-07-02] MEDS: SODIUM CHLORIDE 0.9% INJ SCH ×2 (09:55→23:30)
[2018-07-02] MEDS: SODIUM CHLORIDE 0.9% INJ PRN (11:24)
[2018-07-02] MEDS: ROCEPHIN 2 GM in NS 50 ML IV SCH (11:36)
[2018-07-02] MEDS ORDERED: KLOR-CON PO ONE (14:19)
--- NOTE | 2018-07-02 15:04 | INFECTIOUS DISEASE PROGRESS NO ---
DATE: 07/02/2018 PRESENT ILLNESS: Ms. Donaldson has a Klebsiella bacteremia which we think originated from either her Port-A-Cath or her recent abdominal surgery at [place]. There is also a methicillin- resistant Staph aureus pneumonia. MEDICATIONS: She is receiving ceftriaxone 2 g IV every 24 hours and IV vancomycin per pharmacy dosing. PHYSICAL EXAMINATION: Vital Signs: Temperature is 98.1 degrees, pulse rate 76, respiratory rate 18, blood pressure 135/66, O2 saturation is 98% on 2 L. General: This is an obese, chronically ill-appearing, middle-aged female. She is lying in bed, currently in no acute distress. HEENT: Atraumatic, normocephalic. Oral mucous membranes are pink and moist. Conjunctivae are pale. Neck: Supple. Trachea is midline. Cardiovascular: Heart rate and rhythm are regular. Normal sinus rhythm on the monitor. Respiratory: Lung sounds are clear in the upper lobes, diminished in the bases. Abdomen: Soft, obese and tender to palpation. The midline incision is clean and dry and well approximated with some residual Steri-Strips still in place. Bowel sounds are active. Neurologic: She is awake, alert, and oriented, able to move all her extremities with generalized weakness noted. Integumentary: PAC site to right chest is without edema or erythema. LABORATORY AND X-RAY: Today her white count is 4.36, hemoglobin 8.7, platelet count 159,000. Creatinine is 1, GFR 57. Her sputum has grown a methicillin-resistant Staph aureus and her blood has previously grown a Klebsiella pneumoniae. ASSESSMENT AND PLAN: Ms. Donaldson will need 2 weeks of treatment with Rocephin for her Klebsiella bacteremia. Day 1 will be the first day of sterile blood cultures. I have put in orders for blood cultures to be drawn this afternoon. She is also receiving vancomycin for methicillin- resistant Staphylococcus aureus pneumonia, which we will also continue. As far as discharge is concerned, orders have already been put into the computer for the patient to receive Rocephin daily at home for 2 weeks. She will need to stay in the hospital until her blood cultures are sterile. We will go ahead and check a chest x-ray in the morning to follow her Methicillin- resistant Staphylococcus aureus pneumonia. These plans have been discussed with and recommended by Dr. Lewis. COMORBIDITIES: For Ms. Donaldson include obesity, appendiceal cancer with chemotherapy, anemia, and anxiety. Dictated by HUSAM Centeno for Yousif Lewis MD This chart was documented by, HUSAM Centeno and accurately reflects the services performed, treatment plan and medical decisions as attested by the providers signature Yousif Lewis MD. cc: Yousif Lewis MD [facility]
[2018-07-02] MEDS: D5W 1,000 ML IV SCH (15:42)
--- NOTE | 2018-07-02 17:42 | PROGRESS NOTE ---
DATE: 07/02/2018 SUBJECTIVE: The patient is sitting up in bed resting comfortably. She has no complaints at this time. She did eat some breakfast and was able to keep that down without any difficulty. OBJECTIVE: Vital Signs: Temperature 97.6, blood pressure 141/65, heart rate 75, respirations 21. O2 sats 97% on 2 L nasal cannula. General: This is a morbidly obese female lying in bed in no acute distress. Heart: S1, S2 normal. Regular rate and rhythm. Lungs: Equal air entry bilaterally. No wheezing. No rales. Abdomen: Positive bowel sounds. Soft, obese, nontender, nondistended. Extremities: Trace pedal edema. Neurologic: The patient is alert and oriented x 3. LABS: White blood cell count 4.3, hemoglobin 8.7, hematocrit 28, platelets 159,000. Sodium 150, potassium 3.1, chloride 116, CO2 22, BUN 3, creatinine 1, glucose 101, calcium 8. ASSESSMENT AND PLAN: 1. Pneumonia secondary to MRSA. Continue with antibiotic therapy as directed by Dr. Lewis. 2. Bacteremia secondary to Klebsiella. Continue with the current antibiotic regimen. 3. Appendiceal carcinoma, status post FOLFOX. Aware. Oncology is following. 4. Protein calorie malnutrition. Continue with meal supplements. 5. Anemia. Stable. 6. Hypernatremia. Will start the patient on D5W. 7. Hypokalemia. Will replace the patient's potassium. 8. Continue with physical therapy. cc: Joanna Ruvalcaba MD
[2018-07-02] MEDS: VANCOMYCIN 2,000 MG in NS 500 ML IV SCH (23:30)
[2018-07-03] MEDS: CARAFATE LIQUID PO SCH ×4 (04:00→21:34)
[2018-07-03] MEDS: PHENERGAN IV PRN ×4 (04:01→19:01)
[2018-07-03] MEDS: D5W 1,000 ML IV SCH ×2 (04:02→21:34)
[2018-07-03] MEDS: OXY IR PO PRN ×2 (06:05→14:27)
[2018-07-03] MEDS: SYNTHROID PO SCH (06:05)
[2018-07-03 06:38] LABS: BASO# 0.04 X1000 (0.0-0.2); BASO% 0.8 % (0.0-0.8); EOS# 0.13 X1000 (0.0-0.7); EOS% 2.6 % (0.0-10.0); HEMATOCRIT 30.1 % (37.0-47.0); HEMOGLOBIN 8.9 g/dL (12.0-16.0); IMM GRAN# 0.06 X1000 (0.0-0.04); IMM GRAN% 1.2 % (0.0-0.5); LYMPH# 0.81 X1000 (1.2-3.4); LYMPH% 16.2 % (20.5-51.1); MCH 26.3 PG (27-31); MCHC 29.6 g/dL (33-37); MCV 88.8 FL (81-99); MONO# 0.72 X1000 (0.11-0.59); MONO% 14.4 % (1.7-9.3); MPV 9.2 FL (7.4-10.4); NEUT# 3.25 X1000 (1.4-6.5); NEUT% 64.8 % (42.2-75.2); PLT 175 X1000 (130-400); RBC 3.39 XMIL (4.2-5.4); RDW 20.2 % (11.5-14.5); WBC 5.01 X1000 (4.8-10.8)
[2018-07-03 07:11] LABS: ALB/GLOB RATIO 0.9; ALBUMIN 2.9 g/dL (3.5-5.0); CALCIUM 8.4 mg/dL (8.8-10.2); POTASSIUM 3.4 mmol/L (3.5-5.1); TOTAL BILIRUBIN 0.43 mg/dL (0.20-1.00)
--- NOTE | 2018-07-03 07:36 | Diag Imaging Result Doc PS360 ---
EXAM: CHEST-PORTABLE INDICATION: pneumonia TECHNIQUE: One view COMPARISON: 06/28/2018 FINDINGS: Right chest port is in stable position. There is a small left pleural effusion with adjacent mild atelectasis and/or infiltrate that is essentially stable. No new consolidation is identified. Cardiac silhouette is stable. IMPRESSION: Essentially stable chest. Electronically signed by Conor Galaviz 07/03/2018 7:33 AM
[2018-07-03 07:47] LABS: MAGNESIUM 1.6 mg/dL (1.5-2.7); PHOSPHORUS 2.7 mg/dL (2.7-4.5)
[2018-07-03] MEDS ORDERED: MAGNESIUM SULFATE 2 GM/S.W.I. 2 GM/50 ML IVPB IV ONE (08:46)
--- NOTE | 2018-07-03 09:16 | PROGRESS NOTE ---
DATE: 07/03/2018 SUBJECTIVE: The patient is resting comfortably in bed. She has no complaints at this time. OBJECTIVE: Vital Signs: Temperature 98.3 degrees, blood pressure 141/67, heart rate 80, respirations 18, O2 saturation 95% on 2 L nasal cannula. General: This is an elderly female lying in bed in no acute distress. Heart: S1, S2 normal. Regular rate and rhythm. Lungs: Coarse breath sounds. No wheezing. No rales. Abdomen: Positive bowel sounds. Soft. Distended, obese. Extremities: 1+ edema bilaterally. Neurologic: The patient is alert and oriented x3. LABS: White blood cell count 5, hemoglobin 8.9, hematocrit 30, platelets 175,000. Sodium 149, potassium 3.4, chloride 115, CO2 24, BUN 2, creatinine 1, glucose 99, albumin 2.9, magnesium 1.6, phosphorus 2.7. Chest x-ray shows a small left pleural effusion. ASSESSMENT AND PLAN: 1. Pneumonia secondary to methicillin-resistant Staphylococcus aureus. Continue with antibiotic therapy as directed by Dr. Lewis. 2. Bacteremia secondary to Klebsiella. Continue on the current antibiotic regimen. 3. Appendiceal carcinoma, status post FOLFOX. Management as per the oncologist. 4. Hypernatremia. Continue on D5W. 5. Anemia. Stable. 6. Hypokalemia. Will replace the patient's potassium. 7. Hypomagnesemia. We will replace the patient's magnesium. 8. Continue with physical therapy. cc: Joanna Ruvalcaba MD
[2018-07-03] MEDS: DITROPAN PO SCH ×2 (10:21→21:34)
[2018-07-03] MEDS: SODIUM CHLORIDE 0.9% INJ SCH ×2 (10:22→21:34)
[2018-07-03] MEDS: PROTONIX IV SCH ×2 (10:22→21:34)
--- NOTE | 2018-07-03 11:00 | PROVIDER PROGRESS NOTE ---
Progress Note SUBJECTIVE: No acute overnight events. No N/V/F, CP, SOB. Abdominal pain improving. She is having normal brown stools. OBJECTIVE: Last Vital Signs Temp 98.3 F 07/03/18 08:00 Pulse 80 07/03/18 08:00 Resp 18 07/03/18 08:00 BP 141/67 07/03/18 08:00 Pulse Ox 95 07/03/18 08:27 Height 5 ft 5 in Weight 232 lb 9.403 oz GEN: awake, alert, NAD, sitting on commode HEENT: anicteric, MMM, EOMI NECK: supple, no jvd PULM: normal WOB CV: RRR ABD: obese, incision c/d/i EXT: no cce NEURO: nonfocal LABS: 07/03/18 07/03/18 06:05 06:05 WBC 5.01 Hgb 8.9 L Plt Count 175 Sodium 149 H Potassium 3.4 L Chloride 115 H Carbon Dioxide 24 L BUN 2 L Creatinine 1.0 H Total Bilirubin 0.43 AST 18 ALT 5 L Alkaline Phosphatase 168 H Total Protein 6.0 L Albumin 2.9 L BC with K pneumo, repeat NGTD MRSA in sputum ASSESSMENT PLAN: Ms. 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 GI consulted for question GI bleeding given abdominal pain and dark stools. Her hgb has improved without blood transfusion. She has been having green to brown stools since admission. No evidence of overt GI bleeding. Positive FOBT; however, this is expected given her multiple medical problems including recent surgery. She is up-to-date with colonoscopy. She previously had NBNB emesis prior to admission, which has resolved. Her anemia is chronic and likely related to chemotherapy. ID and oncology following, appreciate recs. #Anemia: 2/2 chemotherapy - continue iron replacement therapy - continue PPI - no plans for endoscopy at this time #K. pneumoniae bacteremia and MRSA PNA: on abx as per ID #N/V: resolved; secondary to infection: continue antiemetics prn #Appendiceal carcinoma followed by Dr. Capone; appreciate, recommendations. #Protein calorie malnutrition. She is on regular diet, ensure with meals. Appreciate dietitian recommendations. Will sign off. Please call with questions
[2018-07-03] MEDS: ROCEPHIN 2 GM in NS 50 ML IV SCH (11:48)
--- NOTE | 2018-07-03 14:49 | INFECTIOUS DISEASE PROGRESS NO ---
DATE: 07/03/2018 PRESENT ILLNESS: The patient has a Klebsiella bacteremia which originated from either her Port-A- Cath or her abdomen. Also, the patient has a methicillin-resistant Staphylococcus aureus pneumonia with a small effusion. MEDICATIONS: The patient is on a combination of Rocephin 2 g IV every 24 hours and IV vancomycin per pharmacy dosing. Day 1 of treatment with Rocephin will be the first day that the patient's repeat blood cultures are sterile. PHYSICAL EXAMINATION: Vital Signs: Temperature is 98.3 degrees, pulse 80, respirations 18, blood pressure 141/67. General: This is an obese but ill-appearing, middle-aged female. She is in no acute distress. Head, Eyes, Ears, Nose, and Throat: She can hear my spoken words and see near objects. She does not have any white coating of her tongue. Neck: No pain with movement. Lungs: Clear to auscultation. Cardiovascular: Heart rate is regular. Abdomen: The patient's abdomen is soft. It is not tender to light palpation. The patient's incision is intact. Neurologic: The patient is alert. She can move her extremities. There is no tremor. She is able to ambulate. Thorax: The patient has a Port-A-Cath on the right side. The site is not erythematous or draining. LAB AND X-RAY: Chest x-ray shows stable left lower lobe infiltrate and effusion. CBC shows a white count of 5010, hemoglobin 8.9, and platelet count 175,000. Creatinine is 1.0. GFR is 57. Alkaline phosphatase is 168. ASSESSMENT AND PLAN: I plan to continue Rocephin for a total of 2 weeks with day 1 being the first day that the patient's repeat blood cultures are sterile. Also, I plan to continue vancomycin hopefully until the infiltrate and effusion have cleared on chest x-ray. If the bacteremia persists, then I will get a CAT scan of the abdomen and if that does not show an area where the Klebsiella could have come from, then the next step would be to take out the patient's Port-A-Cath. COMORBIDITIES: The patient is obese. She had appendiceal cancer and had chemotherapy installed into her abdomen. The patient is anemic also. cc: Yousif Lewis MD
[2018-07-03] MEDS: VANCOMYCIN 2,000 MG in NS 500 ML IV SCH (21:53)
[2018-07-04] MEDS: OXY IR PO PRN ×2 (00:35→08:21)
[2018-07-04] MEDS: PHENERGAN IV PRN ×5 (00:35→18:12)
[2018-07-04] MEDS: CARAFATE LIQUID PO SCH ×4 (01:49→21:16)
[2018-07-04] MEDS: SYNTHROID PO SCH (05:00)
[2018-07-04 07:08] LABS: BASO# 0.05 X1000 (0.0-0.2); BASO% 0.9 % (0.0-0.8); EOS# 0.12 X1000 (0.0-0.7); EOS% 2.1 % (0.0-10.0); HEMATOCRIT 30.4 % (37.0-47.0); HEMOGLOBIN 9.1 g/dL (12.0-16.0); IMM GRAN# 0.05 X1000 (0.0-0.04); IMM GRAN% 0.9 % (0.0-0.5); LYMPH# 0.64 X1000 (1.2-3.4); MCH 26.4 PG (27-31); MCHC 29.9 g/dL (33-37); MCV 88.1 FL (81-99); MPV 9.3 FL (7.4-10.4); NEUT# 4.28 X1000 (1.4-6.5); NEUT% 73.1 % (42.2-75.2); PLT 180 X1000 (130-400); RBC 3.45 XMIL (4.2-5.4); RDW 20.4 % (11.5-14.5); WBC 5.84 X1000 (4.8-10.8)
[2018-07-04 07:32] LABS: CALCIUM 8.5 mg/dL (8.8-10.2); CREATININE 1.1 mg/dL (0.5-0.9); PHOSPHORUS 2.8 mg/dL (2.7-4.5); POTASSIUM 3.1 mmol/L (3.5-5.1)
[2018-07-04] MEDS ORDERED: KLOR-CON PO ONE (08:09)
[2018-07-04] MEDS: DITROPAN PO SCH ×3 (08:13→21:16)
[2018-07-04] MEDS: SODIUM CHLORIDE 0.9% INJ PRN (08:23)
[2018-07-04] MEDS: D5W 1,000 ML IV SCH (10:59)
--- NOTE | 2018-07-04 10:59 | Diag Imaging Result Doc PS360 ---
EXAM: ABDOMEN FLAT/UPRIGHT 07/04/2018 HISTORY: abdominal pain TECHNIQUE: Flat and upright abdomen COMMENT: There is scoliosis of the lumbar spine with convexity to the left. There is gas in the colon and some small bowel loops without evidence of significant dilatation. The stomach is not distended. There are surgical clips in the right upper quadrant. There is no evidence organomegaly or mass. IMPRESSION: Nonspecific abdomen. Electronically signed by Shad Lopez 07/04/2018 10:57 AM
[2018-07-04] MEDS: PROTONIX IV SCH ×3 (11:00→22:38)
[2018-07-04] MEDS: SODIUM CHLORIDE 0.9% INJ SCH ×2 (11:00→21:15)
[2018-07-04] MEDS: ROCEPHIN 2 GM in NS 50 ML IV SCH (11:00)
--- NOTE | 2018-07-04 15:44 | PROGRESS NOTE ---
DATE: 07/04/2018 SUBJECTIVE: The patient is resting comfortably in bed. She states that her appetite has not been very good. She is having bowel movements. OBJECTIVE: Vital Signs: Temperature 98.5 degrees, blood pressure 135/64, heart rate 83, respirations 18, O2 saturation is 99% on room air. General: This is a morbidly obese female lying in bed, in no acute distress. Heart: S1, S2 normal. Regular rate and rhythm. Lungs: Clear to auscultation bilaterally. Abdomen: Positive bowel sounds. Soft, nontender, nondistended. Extremities: There is 1+ edema. Neurologic: The patient is alert and oriented x4. LABS: White blood cell count 5.8, hemoglobin 9.1, hematocrit 30, platelets 180,000. Sodium 150, potassium 3.1, chloride 116, CO2 25, BUN 2, creatinine 1.1, magnesium 2, phosphorus 2.8. ASSESSMENT AND PLAN: 1. Pneumonia secondary to methicillin-resistant Staphylococcus aureus. Continue with antibiotic therapy. 2. Bacteremia secondary to Klebsiella. So far the repeat blood cultures remain negative. Continue on the current antibiotic regimen. 3. Hypernatremia. We will increase the D5W rate to 100 mL an hour. 4. Hypokalemia. Will replace the patient's potassium. 5. Appendiceal carcinoma, status post chemotherapy. Aware. The patient is followed by Oncology as outpatient. 6. Hypomagnesemia. We will replace the patient's magnesium. 7. Continue with physical therapy. 8. Disposition. Hopefully, the patient will be able to be discharged home tomorrow if it is okay with Dr. Lewis. cc: Joanna Ruvalcaba MD [facility]
[2018-07-04 17:17] LABS: CALCIUM 8.2 mg/dL (8.8-10.2); CREATININE 1.2 mg/dL (0.5-0.9); PHOSPHORUS 2.3 mg/dL (2.7-4.5); POTASSIUM 3.6 mmol/L (3.5-5.1)
[2018-07-04] MEDS ORDERED: POTASSIUM PHOSPHATE 20 MMOL in NS 250 ML IV ONE (19:19)
--- NOTE | 2018-07-04 19:39 | INFECTIOUS DISEASE PROGRESS NO ---
DATE: 07/04/2018 PRESENT ILLNESS: The patient has a Klebsiella bacteremia which originated either from a Port-A- Cath or her abdomen. The patient possibly has a methicillin-resistant Staphylococcus aureus pneumonia with a small effusion. MEDICATIONS: The patient has been on Rocephin now for 2 days, with day 1 being the first day that the patient's blood cultures were sterile, which is 07/02/2018. The patient has been on vancomycin now for a total of 3 days. PHYSICAL EXAMINATION: Vital Signs: Temperature is 98.5 degrees, pulse 83, respirations 18, blood pressure 135/64. General: This is an obese, but ill-appearing, middle-aged female. She is in no acute distress. She did tell me today that she has vomited twice around mealtimes. Head, Eyes, Ears, Nose, and Throat: She can hear my spoken words and see near objects. She does not have any white patches on her tongue. Neck: There is no pain when she moves her neck. Lungs: Clear to auscultation. Cardiovascular: Heart rate is regular. Thorax: The patient's Port-A-Cath site is not swollen or red. Abdomen: Soft and not tender. The incision is intact. It is not erythematous or draining. Neurologic: The patient is alert. She can move her extremities. She does not have a tremor. LAB AND X-RAY: Chest x-ray shows a small left pleural effusion and a small basilar infiltrate/atelectasis. The CBC shows a white count of 5840, hemoglobin 9.1, and platelet count 180,000. Creatinine is 1.1. GFR is 51. ASSESSMENT AND PLAN: As mentioned earlier, the patient today vomited twice, each time around mealtime. For now, I plan to continue with Rocephin and vancomycin for her Klebsiella bacteremia and possible methicillin-resistant Staphylococcus aureus pneumonia respectively. If the vomiting continues, then I think we should get a CAT scan of the abdomen, not only for the vomiting, but also to see if there is an area in the abdomen where the patient could have had a Klebsiella bacteremia arise from. 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 The patient is anemic. cc: Yousif Lewis MD
[2018-07-04] MEDS: DULCOLAX PR SCH (21:16)
[2018-07-04] MEDS: COLACE PO SCH (21:17)
[2018-07-04] MEDS: VANCOMYCIN 2,000 MG in NS 500 ML IV SCH (22:53)
[2018-07-05 01:35] LABS: URINE SOURCE CLEAN CATCH
[2018-07-05 01:37] LABS: BILIRUBIN URINE NEGATIVE (NEGATIVE); BLOOD URINE TRACE (NEGATIVE); COLOR STRAW; GLUCOSE URINE NEGATIVE (NEGATIVE); KETONE URINE NEGATIVE (NEGATIVE); LEUKOCYTES URINE NEGATIVE (NEGATIVE); NITRITE URINE NEGATIVE (NEGATIVE); PH URINE 6.5; PROTEIN URINE NEGATIVE (NEGATIVE); TURBIDITY URINE CLEAR (CLEAR); UROBILINOGEN URINE NORMAL (NORMAL)
[2018-07-05 01:38] LABS: UR EPITHELIAL CELLS <10 /HPF (<10); URINE BACTERIA NEGATIVE /HPF; URINE RBC <10 /HPF (<10); URINE WBC <10 /HPF (<10)
[2018-07-05 01:56] LABS: UR CREAT RANDOM 15.5 mg/dL (11-20); UR PROT RANDOM 6.5 mg/dL
[2018-07-05] MEDS: SODIUM CHLORIDE 0.9% INJ PRN ×2 (02:33→06:45)
[2018-07-05] MEDS: PHENERGAN IV PRN ×3 (02:33→18:20)
[2018-07-05] MEDS: CARAFATE LIQUID PO SCH ×3 (04:50→20:47)
[2018-07-05 06:34] LABS: BASO# 0.04 X1000 (0.0-0.2); BASO% 0.7 % (0.0-0.8); EOS% 1.7 % (0.0-10.0); HEMATOCRIT 31.4 % (37.0-47.0); HEMOGLOBIN 9.2 g/dL (12.0-16.0); IMM GRAN# 0.05 X1000 (0.0-0.04); IMM GRAN% 0.9 % (0.0-0.5); LYMPH# 0.62 X1000 (1.2-3.4); LYMPH% 10.7 % (20.5-51.1); MCH 25.9 PG (27-31); MCHC 29.3 g/dL (33-37); MCV 88.5 FL (81-99); MONO# 0.65 X1000 (0.11-0.59); MONO% 11.2 % (1.7-9.3); MPV 9.6 FL (7.4-10.4); NEUT# 4.35 X1000 (1.4-6.5); NEUT% 74.8 % (42.2-75.2); PLT 192 X1000 (130-400); RBC 3.55 XMIL (4.2-5.4); RDW 20.5 % (11.5-14.5); WBC 5.81 X1000 (4.8-10.8)
[2018-07-05] MEDS: SYNTHROID PO SCH (06:45)
[2018-07-05 06:50] LABS: MAGNESIUM 1.9 mg/dL (1.5-2.7); PHOSPHORUS 3.3 mg/dL (2.7-4.5)
[2018-07-05 06:52] LABS: CALCIUM 8.4 mg/dL (8.8-10.2); CREATININE 1.2 mg/dL (0.5-0.9); POTASSIUM 3.4 mmol/L (3.5-5.1)
[2018-07-05] MEDS ORDERED: POTASSIUM CHLORIDE 40 MEQ/SWI 40 MEQ/100 ML IVPB IV ONE (07:18)
[2018-07-05] MEDS ORDERED: QUELICIN (DOSE) ONE (10:24)
[2018-07-05] MEDS ORDERED: ZOFRAN ONE (10:25)
[2018-07-05] MEDS ORDERED: DIPRIVAN 1% ONE (10:25)
--- NOTE | 2018-07-05 11:42 | PROGRESS NOTE ---
DATE: 07/05/2018 SUBJECTIVE: The patient is resting comfortably in bed. She has been nauseous and vomiting all night and even into the morning. OBJECTIVE: Vital Signs: Temperature 97.9 degrees, blood pressure 144/67, heart rate 84, respirations 18, and O2 saturation 98% on room air. General: This is a morbidly obese female lying in bed in no acute distress. Heart: S1, S2 normal. Regular rate and rhythm. Lungs: Clear to auscultation bilaterally. No wheezing. No rales. No rhonchi. Abdomen: Positive bowel sounds. Soft, nontender, nondistended. Extremities: No edema. No cyanosis. No calf tenderness. Neurologic: The patient is alert and oriented x4. LABORATORIES: White blood cell count 5.8, hemoglobin 9.2, hematocrit 31, and platelets 192,000. Sodium 146, potassium 3.4, chloride 112, CO2 25, BUN 3, creatinine 1.2 and glucose 107. ASSESSMENT AND PLAN: 1. Persistent nausea and vomiting. The case was discussed with Dr. Guillen, and he will be taking the patient for endoscopy today. We will await the results of this diagnostic procedure. 2. Pneumonia secondary to methicillin-resistant Staphylococcus aureus. Continue with antibiotic therapy. 3. Bacteremia secondary to Klebsiella. The repeat blood cultures remain negative. Continue with antibiotic therapy. 4. Hypernatremia. Improved. Continue on D5W. 5. Hypokalemia. We will replace the patient's potassium. 6. Acute kidney injury. The patient's random vancomycin level was noted to be 30 yesterday, and so the patient did not receive any vancomycin yesterday. We will continue to monitor the renal function closely. 7. Continue with physical therapy. cc: Joanna Ruvalcaba MD [facility]
[2018-07-05] MEDS: OXY IR PO PRN ×2 (13:34→20:38)
[2018-07-05] MEDS: D5W 1,000 ML IV SCH ×3 (13:35→16:38)
[2018-07-05] MEDS: ROCEPHIN 2 GM in NS 50 ML IV SCH (13:35)
[2018-07-05] MEDS: PROTONIX IV SCH ×3 (14:01→23:56)
[2018-07-05] MEDS: SODIUM CHLORIDE 0.9% INJ SCH ×2 (14:02→20:39)
--- NOTE | 2018-07-05 16:13 | OPERATIVE NOTE ---
PROCEDURE DATE: 07/05/2018 PROCEDURE: Upper gastrointestinal (GI) endoscopy with biopsy. PROVIDER: Altaf Guillen MD PREOPERATIVE DIAGNOSES: 1. Intractable nausea/vomiting. 2. Anemia. POSTOPERATIVE DIAGNOSES: MEDICATIONS: General anesthesia. DESCRIPTION OF PROCEDURE: Prior to procedure, a history and physical was performed. The patient's medication and allergies were reviewed. The patient's tolerance to previous anesthesia was also reviewed. The risks and benefits of the procedure and the sedation options and risks were discussed with the patient, and all questions were answered. Informed consent was obtained. After reviewing the risks and benefits, the patient was deemed in satisfactory condition to undergo the procedure. The endoscope was passed under direct visualization. Throughout the procedure, the patient's blood pressure, pulse, and oxygen saturation were monitored continuously. The endoscope was introduced through the mouth and advanced to the second part of the duodenum. The upper GI endoscopy was accomplished without difficulty. The patient tolerated the procedure well. COMPLICATIONS: No immediate complications. ESTIMATED BLOOD LOSS: Minimal. FINDINGS: Normal esophagus. The Z-line was regular. There was a small hiatal hernia. The stomach revealed mild diffuse gastritis with scattered erosions in the antrum. Random gastric biopsies were obtained by cold forceps to rule out H. pylori. The duodenal bulb and second portion were normal. IMPRESSION - Small hiatal hernia - Gastritis. Biopsied - Normal duodenum RECOMMENDATIONS: - Clear liquid diet and advance as tolerated. - Continue antiemetics as needed for nausea. - Follow up pathology. - Continue PPI b.i.d. We will follow with you. Please call with any questions or concerns. MTDD
[2018-07-05] MEDS: DITROPAN PO SCH ×2 (16:38→20:47)
[2018-07-05] MEDS: COLACE PO SCH ×2 (16:38→23:55)
--- NOTE | 2018-07-05 16:42 | INFECTIOUS DISEASE PROGRESS NO ---
DATE: 07/05/2018 PRESENT ILLNESS: The patient has Klebsiella bacteremia which originated either from her Port-A- Cath or her abdomen. The patient also may possibly have a methicillin-resistant Staph aureus pneumonia with a small effusion. MEDICATIONS: The patient has been on Rocephin now for 5 days and she has been on the vancomycin now for a total of 4 days. PHYSICAL EXAMINATION: Vital Signs: Temperature is 97.9, pulse 92, respirations 18, blood pressure 108/46. General: This is an obese, ill-appearing middle-aged female. She has just returned from endoscopy and is lethargic. Head, Eyes, Ears, Nose and Throat: No drainage noted from the nose or ears. I did not see any white coating on her tongue when she was awake enough to open her mouth. Neck: Moving her neck did not cause her to have pain. Lungs: Clear to auscultation. Cardiovascular: Heart rate is regular. Thorax: The patient has a Port-A-Cath and the site is not erythematous or swollen. Abdomen: Soft and not tender. Her incision is intact. Neurologic: As mentioned above, patient is lethargic. She had just returned from endoscopy. She can move her extremities. There is no tremor. LAB AND X-RAY: CBC today shows a white count of 5810, hemoglobin 9.2 and platelet count 192,000. The patient's creatinine is 1.2. The GFR he is 46. Urinalysis shows no white cells or bacteria. Random vancomycin level was 27.1. ASSESSMENT AND PLAN: The patient has a Klebsiella bacteremia. My plan is to continue treating it with Rocephin and likewise the patient may have a methicillin-resistant Staph aureus pneumonia with small effusions, and I plan to continue that to continue treatment for that with vancomycin. 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 The patient also is anemic. cc: Yousif Lewis MD
[2018-07-05] MEDS: ZOFRAN IV PRN (20:39)
[2018-07-05] MEDS: DULCOLAX PR SCH (20:47)
[2018-07-06] MEDS: CARAFATE LIQUID PO SCH ×4 (01:09→22:38)
[2018-07-06] MEDS: PHENERGAN IV PRN ×5 (03:30→20:59)
[2018-07-06] MEDS: OXY IR PO PRN ×2 (06:05→12:12)
[2018-07-06] MEDS: SYNTHROID PO SCH (06:05)
[2018-07-06 07:37] LABS: BASO# 0.05 X1000 (0.0-0.2); BASO% 0.8 % (0.0-0.8); EOS# 0.14 X1000 (0.0-0.7); EOS% 2.3 % (0.0-10.0); HEMATOCRIT 32.8 % (37.0-47.0); HEMOGLOBIN 9.9 g/dL (12.0-16.0); IMM GRAN# 0.05 X1000 (0.0-0.04); IMM GRAN% 0.8 % (0.0-0.5); LYMPH# 0.75 X1000 (1.2-3.4); LYMPH% 12.2 % (20.5-51.1); MCH 27.1 PG (27-31); MCHC 30.2 g/dL (33-37); MCV 89.9 FL (81-99); MONO# 0.69 X1000 (0.11-0.59); MONO% 11.2 % (1.7-9.3); MPV 9.6 FL (7.4-10.4); NEUT# 4.47 X1000 (1.4-6.5); NEUT% 72.7 % (42.2-75.2); PLT 189 X1000 (130-400); RBC 3.65 XMIL (4.2-5.4); RDW 20.7 % (11.5-14.5); WBC 6.15 X1000 (4.8-10.8)
[2018-07-06 08:00] LABS: MAGNESIUM 1.9 mg/dL (1.5-2.7); PHOSPHORUS 3.1 mg/dL (2.7-4.5)
[2018-07-06] MEDS: DITROPAN PO SCH ×2 (08:01→22:39)
[2018-07-06] MEDS: COLACE PO SCH ×2 (08:01→22:39)
[2018-07-06 08:20] LABS: CALCIUM 8.2 mg/dL (8.8-10.2); CREATININE 1.2 mg/dL (0.5-0.9); POTASSIUM 3.7 mmol/L (3.5-5.1)
[2018-07-06] MEDS ORDERED: MUCINEX PO ONE (11:11)
[2018-07-06] MEDS: D5W 1,000 ML IV SCH (12:12)
[2018-07-06] MEDS: SODIUM CHLORIDE 0.9% INJ SCH ×2 (13:27→20:59)
[2018-07-06] MEDS: PROTONIX IV SCH ×3 (13:27→22:38)
[2018-07-06] MEDS: ROCEPHIN 2 GM in NS 50 ML IV SCH (13:27)
--- NOTE | 2018-07-06 15:31 | GASTROENTEROLOGY PROGRESS NOTE ---
DATE: 07/06/2018 Resting in bed. Her present at bedside. She denies any nausea this morning. She was able to eat her meal last night. She is moving her bowels. PHYSICAL EXAMINATION: Vital signs: Temperature 98.2 degrees, pulse rate of 83, respiratory rate 16, blood pressure 144/72, saturating 98% room air. Body weight of 232 pounds 9.4 ounces. BMI 38 kg/m2. General Appearance: Obese, lying in bed, in no acute distress. HEENT: Pale. No icterus. Neck: Is supple. Abdomen: Is obese, midline healing scar murray from recent surgery. No guarding. Mild protuberance of the abdomen. Extremities: No cyanosis, clubbing. Neurologic: She is awake, alert, and answers simple questions. She is oriented to time, place, and person. LABS: Hemoglobin and hematocrit is 9.9 and 32.8, white count of 6.1, platelet count of 189,000. Sodium 140, potassium 3.7, chloride 110, bicarb 26, anion gap 12, BUN of 4 creatinine 1.2, glucose of 96, calcium is 8.2, phosphorus 3.1, magnesium 1.9. Blood culture x2 negative at 48 hours from 07/02/2018. IMPRESSION AND PLAN: 1. Intractable nausea, vomiting. She had EGD done yesterday which showed evidence of small hiatal hernia and mild diffuse gastritis with scattered erosions. These were biopsied. We will follow up the biopsy results. In the interim, PPIs b.i.d. 2. Altered bowel habits. I will give her a dose of Dulcolax and MiraLAX and see the response. 3. Appendiceal carcinoma, aware. 4. Obesity, aware. 5. Nausea. She will continue on IV antiemetics. 6. Bowel regimen with Colace b.i.d. We will evaluate the response with Colace b.i.d. and go from there. 7. Pneumonia secondary to MRSA. She will continue antibiotics. 8. Bacteremia secondary to Klebsiella. She is on antibiotics. Dr. Lewis is following. 9. Above plan of care was discussed with the patient and the nurse and all questions answered. Please call us with any further questions. cc: MD Joanna Higgins MD
--- NOTE | 2018-07-06 19:07 | PROGRESS NOTE ---
DATE: 07/06/2018 SUBJECTIVE: The patient states that her nausea has improved. She has not had any episodes of vomiting today. OBJECTIVE: Vital Signs: Temperature 98.6 degrees, blood pressure 145/80, heart rate 91, respirations 20, O2 saturation 97% on room air. General: This is an elderly female lying in bed in no acute distress. Heart: S1, S2 normal. Regular rate and rhythm. Lungs: Equal air entry bilaterally. No crackles. No rales. Abdomen: Positive bowel sounds. Soft, nontender, nondistended. Extremities: No edema, no cyanosis. Neurologic: The patient is alert and oriented x3. LABORATORY DATA: White blood cell count 6.1, hemoglobin 9.9, hematocrit 32, platelets 189,000. Sodium 148, potassium 3.7, chloride 110, CO2 is 26, BUN 4, creatinine 1.2, glucose 96, phosphorus 3.1, magnesium 1.9. ASSESSMENT AND PLAN: 1. Nausea. Improved. 2. Pneumonia secondary to methicillin-resistant Staphylococcus aureus. Continue with antibiotic therapy. 3. Bacteremia secondary to Klebsiella. Continue with antibiotics. 4. Hypernatremia. Continue on D5W. 5. Acute kidney injury. Stable. The patient is on intravenous fluids. 6. Appendicial carcinoma s/p chemotherapy.Aware. 7. Anemia. Stable. 8. Continue with physical therapy. cc: Joanna Ruvalcaba MD MTDD
[2018-07-06] MEDS: PERICOLACE PO SCH (22:38)
[2018-07-06] MEDS: DULCOLAX PR SCH (22:39)
[2018-07-07] MEDS: OXY IR PO PRN (01:43)
[2018-07-07] MEDS: PHENERGAN IV PRN ×3 (01:43→20:32)
[2018-07-07] MEDS: CARAFATE LIQUID PO SCH ×4 (02:16→20:34)
[2018-07-07] MEDS: D5W 1,000 ML IV SCH ×2 (02:17→06:39)
[2018-07-07] MEDS: SYNTHROID PO SCH ×2 (05:27→06:37)
[2018-07-07 06:44] LABS: HEMATOCRIT 31.6 % (37.0-47.0); HEMOGLOBIN 9.5 g/dL (12.0-16.0); MCH 27.4 PG (27-31); MCHC 30.1 g/dL (33-37); MCV 91.1 FL (81-99); MPV 9.7 FL (7.4-10.4); RBC 3.47 XMIL (4.2-5.4); RDW 20.3 % (11.5-14.5); WBC 5.24 X1000 (4.8-10.8)
[2018-07-07 07:38] LABS: CALCIUM 8.3 mg/dL (8.8-10.2); CREATININE 1.2 mg/dL (0.5-0.9); POTASSIUM 3.2 mmol/L (3.5-5.1)
[2018-07-07] MEDS ORDERED: POTASSIUM CHLORIDE 60 MEQ in NS 500 ML IV ONE (07:40)
[2018-07-07] MEDS: LASIX IV SCH ×2 (10:44→20:33)
[2018-07-07] MEDS: MIRALAX PO SCH (10:44)
[2018-07-07] MEDS: ALBUMIN 25% IV SCH (10:45)
[2018-07-07] MEDS: SODIUM CHLORIDE 0.9% INJ SCH ×2 (10:49→20:34)
[2018-07-07] MEDS: PROTONIX IV SCH ×3 (10:49→23:37)
[2018-07-07] MEDS: ZOFRAN IV PRN ×2 (10:49→15:08)
[2018-07-07] MEDS: MUCINEX PO SCH (10:49)
[2018-07-07] MEDS: DITROPAN PO SCH ×2 (10:50→20:35)
--- NOTE | 2018-07-07 10:54 | Diag Imaging Result Doc PS360 ---
EXAM: FLAT/UPRIGHT ABD/1 VIEW CHEST HISTORY: dyspnea/abdominal pain TECHNIQUE: Flat and upright with chest, three views COMPARISON: 07/04/2018 FINDINGS: The lungs are well expanded. No cardiomegaly. Small infiltrate or scarring in the left base. There is a right-sided portacatheter. No pneumothorax. No free air beneath the diaphragm. The gallbladder has been removed. No organomegaly. Moderate scoliosis. No bowel obstruction. IMPRESSION: 1.No acute abdominal abnormality 2.Small infiltrate or scarring in the left lung base Electronically signed by Eligio Tripathi 07/07/2018 10:52 AM
[2018-07-07] MEDS: COLACE PO SCH ×2 (10:55→20:34)
[2018-07-07] MEDS: PERICOLACE PO SCH ×2 (10:56→20:35)
[2018-07-07] MEDS: VANCOMYCIN 2,000 MG in NS 500 ML IV SCH (13:13)
[2018-07-07] MEDS: ROCEPHIN 2 GM in NS 50 ML IV SCH (16:57)
--- NOTE | 2018-07-07 17:24 | PROGRESS NOTE ---
DATE: 07/07/2018 SUBJECTIVE: The patient complains of swelling in her legs. She did not have any nausea or vomiting overnight. OBJECTIVE: Vital Signs: Temperature 98.1 degrees, blood pressure 137/68, heart rate 86, respirations 22, O2 saturation 96% on room air. General: This is a morbidly obese female lying in bed in no acute distress. Heart: S1, S2 normal. Regular rate and rhythm. Lungs: Equal air entry bilaterally. No wheezing, no rales, no rhonchi. Abdomen: Positive bowel sounds. Soft, obese, nontender, nondistended. Extremities: 3+ edema. Neuro: The patient is alert and oriented x4. LABORATORIES: White blood cell count 5.2, hemoglobin 9.5, hematocrit 31, platelets 176,000, sodium 148, potassium 3.2, chloride 109, CO2 29, BUN 4, creatinine 1.2, glucose 108. ASSESSMENT AND PLAN: 1. Volume overload. The patient's IV fluids will be discontinued and we will start IV Lasix plus albumin infusions. 2. Nausea. Improved. 3. Pneumonia secondary to methicillin-resistant Staphylococcus aureus. Continue with antibiotic therapy. 4. Bacteremia secondary to Klebsiella. Continue on antibiotic therapy. 5. Hypernatremia. We will monitor for improvement. 6. Acute kidney injury. Stable. 7. Appendiceal carcinoma status post chemotherapy. Aware. 8. Anemia. Stable. cc: Joanna Ruvalcaba MD [facility]
--- NOTE | 2018-07-07 18:15 | GASTROENTEROLOGY PROGRESS NOTE ---
DATE: 07/07/2018 SUBJECTIVE: The patient is currently taking a shower. She was changing her clothes. I met her in her room. She denied any nausea or vomiting. She had a bowel movement today. She denied noticing any blood in her stools. She denied any fevers, rigors, chills. OBJECTIVE: Vital Signs: Temperature 98.4 degrees, pulse of 84, respiratory rate 18, blood pressure 143/73, saturating 91% on room air. Body weight of 232 pounds and 9.4 ounces. BMI 38.7 kg. General: The patient is morbidly obese, in no acute distress. HEENT: Pale conjunctivae. No icterus. Neck: Supple. Abdomen: Soft. The incision from recent surgery is healing. No guarding or rebound. Extremities: No cyanosis, clubbing. Neurologic: She is alert, awake, oriented. LABS: Hemoglobin and hematocrit are 9.5 and 31.6, white count of 5.24, platelet count of 176,000. Sodium of 140, potassium of 3.2, chloride of 109, bicarbonate of 29, BUN of 4, creatinine of 1.2, glucose of 108, calcium of 8.3. ProBNP 779 and albumin of 2.8. Vancomycin 10.8. Blood cultures x2 negative at 48 hours from 07/02/2018. Abdominal x-ray done today showed no acute abdominal abnormality, small infiltrate or scarring in the left lung base. Moderate scoliosis was noted. IMPRESSION AND PLAN: 1. Intractable nausea and vomiting, improved. Esophagogastroduodenoscopy showed evidence of hiatal hernia and mild diffuse gastritis. We will follow up the biopsy results. She will continue on proton pump inhibitors twice daily. She will continue intravenous antiemetics. Bowel regimen with Dulcolax and MiraLAX and other response. 2. Appendiceal carcinoma required reason surgery and intraperitoneal chemotherapy. Aware. 3. Obesity. Aware. 4. Pneumonia, secondary to Methicillin resistant Staphylococcus aureus. She is on antibiotics. 5. Bacteremia, secondary to Klebsiella. She is on antibiotics. 6. Gastrointestinal prophylaxis with proton pump inhibitors. Bowel regimen as above. 7. We will follow along. The above plans were discussed with the patient and all questions were answered. Please call us with any further questions. cc: MD Ric Higgins MD
[2018-07-07] MEDS: DULCOLAX PR SCH (20:35)
[2018-07-08] MEDS: CARAFATE LIQUID PO SCH ×3 (01:43→14:27)
[2018-07-08] MEDS: SYNTHROID PO SCH ×2 (05:47→06:19)
[2018-07-08] MEDS: ZOFRAN IV PRN ×5 (05:47→23:16)
[2018-07-08 07:18] LABS: CREATININE 1.4 mg/dL (0.5-0.9); POTASSIUM 3.1 mmol/L (3.5-5.1)
[2018-07-08 07:25] LABS: HEMATOCRIT 30.8 % (37.0-47.0); HEMOGLOBIN 9.1 g/dL (12.0-16.0); MCHC 29.5 g/dL (33-37); MCV 91.4 FL (81-99); MPV 9.7 FL (7.4-10.4); RBC 3.37 XMIL (4.2-5.4); RDW 20.5 % (11.5-14.5); WBC 4.7 X1000 (4.8-10.8)
[2018-07-08 08:05] LABS: MAGNESIUM 2.1 mg/dL (1.5-2.7); PHOSPHORUS 3.7 mg/dL (2.7-4.5)
[2018-07-08] MEDS: DUONEB (A & A) INH PRN (08:24)
[2018-07-08] MEDS ORDERED: POTASSIUM CHLORIDE 60 MEQ in NS 500 ML IV ONE (09:08)
[2018-07-08] MEDS: ALBUMIN 25% IV SCH (10:09)
[2018-07-08] MEDS: COLACE PO SCH (10:15)
[2018-07-08] MEDS: MIRALAX PO SCH (10:15)
[2018-07-08] MEDS: MUCINEX PO SCH (10:16)
[2018-07-08] MEDS: PERICOLACE PO SCH (10:16)
[2018-07-08] MEDS: DITROPAN PO SCH (10:17)
[2018-07-08] MEDS: SODIUM CHLORIDE 0.9% INJ SCH ×2 (10:17→23:16)
[2018-07-08] MEDS: PROTONIX IV SCH ×2 (10:17→23:16)
[2018-07-08] MEDS: D5W 1,000 ML IV SCH (10:18)
[2018-07-08 13:22] LABS: URINE SOURCE CLEAN CATCH
[2018-07-08 13:40] LABS: BILIRUBIN URINE NEGATIVE (NEGATIVE); BLOOD URINE TRACE (NEGATIVE); COLOR YELLOW; GLUCOSE URINE NEGATIVE (NEGATIVE); KETONE URINE NEGATIVE (NEGATIVE); LEUKOCYTES URINE NEGATIVE (NEGATIVE); NITRITE URINE NEGATIVE (NEGATIVE); PH URINE 7.5; PROTEIN URINE 30 mg/dL (NEGATIVE); SP GRAVITY URINE 1.006; TURBIDITY URINE CLEAR (CLEAR); UR EPITHELIAL CELLS <10 /HPF (<10); URINE BACTERIA NEGATIVE /HPF; URINE RBC <10 /HPF (<10); URINE WBC <10 /HPF (<10); UROBILINOGEN URINE NORMAL (NORMAL)
[2018-07-08 14:07] LABS: UR CREAT RANDOM 61.8 mg/dL (11-20); UR PROT RANDOM 47.4 mg/dL
[2018-07-08] MEDS: LASIX IV SCH (14:30)
--- NOTE | 2018-07-08 14:30 | PROGRESS NOTE ---
DATE: 07/08/2018 SUBJECTIVE: The patient states that she does not have an appetite. She also still have swelling in her legs. OBJECTIVE: Vital Signs: Temperature 98.4 degrees, blood pressure 144/60, heart rate 87, respirations 16, O2 saturation 97% on room air, intake 550, output 2.2 L. General: This is a morbidly obese female lying in bed in no acute distress. Heart: S1, S2 normal. Regular rate and rhythm. Lungs: Clear to auscultation bilaterally. No wheezing. No rales. No rhonchi. Abdomen: Positive bowel sounds. Soft, nontender, nondistended. Extremities: 1+ edema in the lower extremities. Neurologic: The patient is alert and oriented x4. LABS: White blood cell count 4.7, hemoglobin 9.1, hematocrit 30, platelets 191,000, sodium 151, potassium 3.1, chloride 106, CO2 34, BUN 5, creatinine 1.4, glucose 101. ASSESSMENT AND PLAN: 1. Volume overload. Will continue with the diuretic therapy. The patient has excellent urine output. 2. Hypernatremia. We will also continue with D5W and monitor the sodium closely for improvement. 3. Acute kidney injury. Will consult with the circular knife cutter machine for further assistance with management. 4. Nausea. Improved. 5. Pneumonia secondary to methicillin-resistant Staphylococcus aureus. Continue with antibiotic therapy as directed by Dr. Lewis. 6. Bacteremia secondary to Klebsiella. Continue on antibiotic therapy. 7. Appendiceal carcinoma status post chemotherapy. Aware. 8. Anemia. Stable. 9. Hypokalemia. Will replace the patient's potassium. 10. Disposition. Continue with physical therapy. cc: oJanna Ruvalcaba MD [facility]
[2018-07-08] MEDS: LEVAQUIN 500 MG/D5W 500 MG/100 ML IVPB IV SCH (15:27)
--- NOTE | 2018-07-08 15:51 | Diag Imaging Result Doc PS360 ---
EXAM: CHEST-1 VIEW 07/08/2018 HISTORY: pneumonia TECHNIQUE: AP portable upright at 1443 COMMENT: There is a Port-A-Cath on the right with its tip in the superior vena cava. The inspiration is less optimal than on 07/07/2018. There is still some ill-defined opacity medially in the left lower lobe. IMPRESSION: Left lower lobe pneumonia. Electronically signed by Shad Lopez 07/08/2018 3:48 PM
--- NOTE | 2018-07-08 16:04 | INFECTIOUS DISEASE PROGRESS NO ---
DATE: 07/08/2018 PRESENT ILLNESS: The patient has a Klebsiella bacteremia which could have arisen from either her Port-A-Cath or abdomen. She also may have a methicillin-resistant Staph aureus pneumonia in the left lower lobe. Finally, the patient has been having intractable nausea and vomiting. This could be secondary to the Rocephin. I think it would be unlikely coming from vancomycin. MEDICATIONS: The patient has been on Rocephin for 8 days and vancomycin for 7 days. PHYSICAL EXAMINATION: Vital Signs: Temperature is 98.4 degrees, pulse 88, respirations 16, blood pressure 144/60. General: This is an obese, ill-appearing, middle-aged female. She is in no acute distress currently, but she has intermittently been vomiting today. Head, eyes, ears, nose, throat: No drainage noted from the nose or ears. She can hear my spoken words and see near objects. She does not have any white coating on her tongue. Thorax: Patient has a Port-A-Cath present on the right side. The site is not swollen or erythematous. Lungs: Clear to auscultation. Cardiovascular: Heart rate is regular. Abdomen: Soft and nontender. The incision is intact. LABORATORY AND X-RAY: X-ray of the abdomen shows no acute disease. In the left lower lobe there may be an infiltrate versus scarring. CBC shows a white count of 4,700, hemoglobin 9.1, and platelet count 191,000. Creatinine is 1.4. GFR is 38. Urinalysis shows no white cells or bacteria. Sputum culture grew methicillin-resistant Staph aureus. ASSESSMENT AND PLAN: I have switched the patient from Rocephin to Levaquin in case the Rocephin is causing the patient's nausea and vomiting. The Levaquin will be treating the patient's Klebsiella bacteremia. For now I plan to continue vancomycin to treat a possible methicillin- resistant Staph aureus pneumonia. COMORBIDITIES: The patient has appendiceal cancer. She has received chemotherapy installed into her abdomen. She also is anemic. cc: Yousif Lewis MD
--- NOTE | 2018-07-08 16:21 | Diag Imaging Result Doc PS360 ---
EXAM: US RENAL 2 (RETROPER) COMPLETE 07/08/2018 HISTORY: norman TECHNIQUE: Renal ultrasound COMMENT: The kidneys appear slightly hyperechoic. There is no evidence of hydronephrosis. There is ascites. The right kidney is 12.2 x 6 x 5 cm the left is 11.2 x 5.1 x 5.6 cm. There is a cyst in the lower pole the right kidney measuring 5.4 cm in greatest dimension. IMPRESSION: Right renal cysts. No evidence of obstructive uropathy. Medical renal disease. Electronically signed by Shad Lopez 07/08/2018 4:18 PM
--- NOTE | 2018-07-08 17:39 | NEPHROLOGY CONSULTATION ---
DATE: 07/08/2018 REASON FOR ADMISSION: Fever, nausea, vomiting. REASON FOR CONSULTATION: Hypernatremia, acute kidney injury. CONSULTING PHYSICIAN: Dr. Ruvalcaba. HISTORY OF PRESENT ILLNESS: This is a 58-year-old female with a complex past medical history that is inclusive of recent history of appendiceal cancer with appendectomy, being followed by 14 rounds of chemotherapy followed by a hyperthermic intraperitoneal chemotherapy at [place]. The patient had that last procedure in May. Almost immediately afterward, she was admitted to the hospital secondary to fever, originally transferred to [place] on 06/22/2018 through 06/24/2018. She presented back to the hospital here on 06/28/2018 with fever, nausea, and vomiting. She has been worked up with GI. She has also been found to have MRSA pneumonia and Klebsiella in her urine. She is being followed by Infectious Disease and is on vancomycin as part of that treatment plan. Her creatinine on admission was 0.8. It has slowly risen and now is at 1.4. Her sodium today was 151. Apparently, the patient has been eating and drinking very little. She has refused free water as well as D5 IV fluid secondary to complaint of lower extremity swelling. We have been asked to see her to assist with management. PAST MEDICAL HISTORY: 1. Appendiceal cancer status post appendectomy and chemotherapy, and HIPEC [place]. 2. Hypothyroidism. 3. Anemia. 4. Anxiety. 5. Claustrophobia. 6. Urinary incontinence. SURGICAL HISTORY: 1. Cholecystectomy. 2. Hysterectomy. 3. Appendectomy. 4. HIPEC in May at [place]. Right chest port placed. ALLERGIES: None. CURRENT MEDICATIONS: Listed as 1. Tylenol. 2. Albumin. 3. DuoNeb. 4. Dulcolax. 5. D5. 6. Colace. 7. Lasix. 8. Mucinex. 9. Levofloxacin. 10. Synthroid. 11. Vancomycin. 12. Ondansetron. 13. Ditropan. 14. Oxycodone. 15. Protonix. 16. MiraLAX. 17. Luba Colace. 18. Carafate. 19. Vancomycin. FAMILY HISTORY: Congestive heart failure, myocardial infarction. Sister with leukemia. Congestive heart failure and diabetes in other siblings. SOCIAL HISTORY: No ETOH, tobacco or illicit drug use. Worked until she required the HIPEC see surgery. REVIEW OF SYSTEMS: Nausea, vomiting, lower extremity edema, fatigue and weakness. PHYSICAL EXAMINATION: Vital Signs: Temperature 98.4 degrees, pulse 87, respiratory rate 16, blood pressure 144/60. Intake 550 mL, output 2.2 L. General: This is a chronically ill- appearing, female sitting up in bed. She is awake and alert. She is somewhat slow to answer but is in no acute distress. HEENT: Normocephalic, atraumatic. Conjunctivae are pink. Oral mucosa is dry. Neck: Supple. There is no JVD. Cardiovascular: Regular rate and rhythm without murmur. Pulmonary: She has decreased breath sounds. No wheezes noted. She is on O2 supplementation via nasal cannula. Abdomen: Obese, soft, nontender at this time. : Alberto catheter. Extremities: 2+ edema. No clubbing, cyanosis. Integumentary: Skin is pale, warm, and dry. Neurologic: Grossly nonfocal. LABORATORY DATA: WBC of 4.7, hemoglobin 9.1. Sodium 151, potassium 3.1, CO2 34, BUN 5, creatinine 1.4. She had an FEUN of 63. ASSESSMENT AND PLAN: 1. Hypernatremia in the setting of decreased oral intake. The patient has refused to take IV fluid secondary to her swelling. In this case, we will add IV Lasix along with D5. Her overall wish is to create an overall net negative on her blood serum on her serum sodium. We will check her labs in the morning. 2. Acute kidney injury. Modest. Likely related to the above. 3. Pneumonia with methicillin resistant Staphylococcus aureus. 4. Bacteremia with Klebsiella. Continues with therapy per Infectious Disease. 5. Fluid volume. She was in net negative territory overnight. Urine output has been greater than 2 L. We will continue to follow along. Dictated by HUSAM Rangel for Rogelio Elder MD Face to face encounter, data reviewed, discussed with Minal Posada on 07/08/18. I agree with the above assessment and plan of care. cc: Rogelio Elder MD [facility]
--- NOTE | 2018-07-08 20:16 | GASTROENTEROLOGY PROGRESS NOTE ---
DATE: 07/08/2018 SUBJECTIVE: Patient resting in bed. She does not have any nausea this morning. Yesterday she threw up three times, was yellowish in color. She has moved her bowels. Her abdominal pain is improved. Denies any fevers, rigors or chills. OBJECTIVE: Vital Signs: Temperature 98.4 degrees, pulse of 88, respiratory 16, blood pressure 144/60. Saturating 92% on room air. Body weight of 232 pounds 9.4 ounces. BMI 38 kg. General: Morbidly obese. Lying in bed, in no acute distress. HEENT: Pale conjunctivae. No icterus. Neck: Supple. Abdomen: Soft. She has a healing scar madiha from prior laparotomy. No guarding or rebound. Extremities: No cyanosis or clubbing. Neurologic: She is awake, alert. Oriented to time, place, person. LABS: Hemoglobin and hematocrit is 9.1 and 30.8, white count of 4.7, platelet count of 191,000. Sodium 139, potassium 3.1, chloride 106, bicarb 31, anion gap 11, BUN of 5, creatinine 1.4, glucose of 101, calcium is 9, phosphorus 3.7, magnesium 2.1, albumin of 3.6. Blood cultures x 2 negative for 5 days from 07/02/18. Abdominal x-ray done yesterday showed no acute abnormality and small infiltrate scarring in the left lung base. IMPRESSION AND PLAN: 1. Nausea and vomiting. We will continue with IV Zofran. Will reduce the dose of Phenergan as this can cause rebound nausea. Today her nausea is better. May try some Carafate. She is having bilious vomiting. 2. Altered bowel habits. It feels like she has some constipation with overflow diarrhea, but is improved with laxatives. We will hold laxatives if she has more than 3 bowel movements in 24 hours. 3. Bacteremia secondary to Klebsiella. She is on antibiotic therapy. 4. Hyponatremia. This is managed by the primary team. 5. Acute kidney injury. Stable. 6. Appendiceal carcinoma, status post intraperitoneal chemotherapy. Aware. Currently recovering from recent surgery. 7. Anemia, stable. Continue to watch for now. Transfuse as needed. 8. Volume overload. This is being managed by primary team. 9. GI prophylaxis. PPIs. 10. Bowel regimen with MiraLAX once daily. The above plans discussed with the patient and the nursing staff and also with Dr. Ruvalcaba. Please call us with any further questions. cc: MD Ric Higgins MD
[2018-07-09] MEDS: COLACE PO SCH ×2 (00:15→12:25)
[2018-07-09] MEDS: DULCOLAX PR SCH (00:15)
[2018-07-09] MEDS: CARAFATE LIQUID PO SCH ×4 (00:15→17:01)
[2018-07-09] MEDS: DITROPAN PO SCH ×2 (00:15→12:25)
[2018-07-09] MEDS: PERICOLACE PO SCH ×2 (00:15→12:25)
[2018-07-09] MEDS: D5W 1,000 ML IV SCH ×2 (02:33→12:24)
[2018-07-09] MEDS: ZOFRAN IV PRN ×2 (03:36→07:43)
[2018-07-09] MEDS: SYNTHROID PO SCH (06:06)
[2018-07-09 06:46] LABS: HEMATOCRIT 30.6 % (37.0-47.0); MCH 26.9 PG (27-31); MCHC 29.4 g/dL (33-37); MCV 91.6 FL (81-99); MPV 9.5 FL (7.4-10.4); RBC 3.34 XMIL (4.2-5.4); RDW 20.3 % (11.5-14.5); WBC 4.76 X1000 (4.8-10.8)
[2018-07-09 07:11] LABS: MAGNESIUM 1.9 mg/dL (1.5-2.7); PHOSPHORUS 2.8 mg/dL (2.7-4.5)
[2018-07-09 07:12] LABS: CALCIUM 8.7 mg/dL (8.8-10.2); CREATININE 1.3 mg/dL (0.5-0.9); POTASSIUM 2.9 mmol/L (3.5-5.1)
[2018-07-09] MEDS: LASIX IV SCH (10:15)
[2018-07-09] MEDS: PROTONIX IV SCH (10:15)
[2018-07-09] MEDS: SODIUM CHLORIDE 0.9% INJ SCH (10:15)
--- NOTE | 2018-07-09 10:38 | PROVIDER PROGRESS NOTE ---
Progress Note SUBJECTIVE: Patient reports having yellow emesis yesterday and poor appetite. She says she can tolerate some liquids if she has zofran prior to eating or drinking. +mild lower abdominal pain. She had a small brown stool yesterday. OBJECTIVE: Last Vital Signs Temp 98.1 F 07/09/18 08:04 Pulse 88 07/09/18 08:15 Resp 16 07/09/18 08:15 BP 147/66 07/09/18 08:04 Pulse Ox 98 07/09/18 08:15 Height 5 ft 5 in Weight 232 lb 9.403 oz GEN: awake, alert, chronically ill appearing, NAD HEENT: anicteric, MMM NECK: supple, no jvd PULM: CTAB, no wheezing CV: RRR, no murmurs ABD: obese, lap scar healing well, no rashes, hypoactive BS; mild TTP in lower abdomen, no rebound or guarding EXT: no cce NEURO: nonfocal LABS: 07/09/18 07/09/18 06:18 06:18 WBC 4.76 L Hgb 9.0 L Plt Count 171 Sodium 145 Potassium 2.9 L Chloride 99 Carbon Dioxide 33 BUN 5 L Creatinine 1.3 H GEN: awake, alert, NAD, sitting on commode HEENT: anicteric, MMM, EOMI NECK: supple, no jvd PULM: normal WOB CV: RRR ABD: obese, incision c/d/i EXT: no cce NEURO: nonfocal LABS: 07/03/18 07/03/18 06:05 06:05 WBC 5.01 Hgb 8.9 L Plt Count 175 Sodium 149 H Potassium 3.4 L Chloride 115 H Carbon Dioxide 24 L BUN 2 L Creatinine 1.0 H Total Bilirubin 0.43 AST 18 ALT 5 L Alkaline Phosphatase 168 H Total Protein 6.0 L Albumin 2.9 L BC with K pneumo, repeat BCx2 NGTD MRSA in sputum ASSESSMENT PLAN: Ms. 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 GI consulted for question GI bleeding given abdominal pain and dark stools. She has had continued intractable nausea and vomiting despite antiemetics and PPI. EGD on 07/05 showed mild diffused gastritis with scattered erosions (biopsied). CT A/P on 06/28 showed left pleural effusion, b/l lower lobe atelectasis versus pneumonia, ascites, stable intrahepatic biliary dilation, and post-surgical changes with seroma. #Intractable nausea and vomiting - scheduled zofran with meals and qHS - will start phenergan 12.5 mg IV as needed for breakthrough - ordered CT A/P with oral contrast to assess for bowel pathology including obstruction #Hypokalemia: replete K #Anemia: stable; no overt bleeding; continue iron replacement therapy, PPI: trending H/H daily #K. pneumoniae bacteremia and MRSA PNA: on abx as per ID #Appendiceal carcinoma followed by Dr. Capone; appreciate, recommendations. #Protein calorie malnutrition: on full liquid diet; appreciate dietitian recommendations; if no improvement, then will consider NG or duoboff placement for enteral feeding Will follow with you. Please call with questions
[2018-07-09] MEDS: ZOFRAN IV SCH ×2 (11:05→17:01)
[2018-07-09] MEDS: MUCINEX PO SCH (12:25)
[2018-07-09] MEDS: MIRALAX PO SCH (12:25)
[2018-07-09] MEDS ORDERED: POTASSIUM CHLORIDE 40 MEQ/SWI 40 MEQ/100 ML IVPB IV ONE (12:34)
--- NOTE | 2018-07-09 12:50 | NEPHROLOGY PROGRESS NOTE ---
DATE: 07/09/2018 SUBJECTIVE: She states she feels better overall. Swelling is improved, but still present. No other new symptoms. No shortness of breath. OBJECTIVE: Vital Signs: Blood pressure 147/66, heart rate 88, respirations 16, afebrile. General: No acute distress. Skin: Warm and dry. Extremities: Have trace to 1+ edema. No clubbing or cyanosis. IMPRESSION: 1. Hypernatremia. Resolving. Continue current care. 2. Acute kidney injury. Creatinine is better today than yesterday. Observe. 3. Edema/hypervolemia. Improving with current therapy. cc: Rogelio Elder MD
[2018-07-09] MEDS: LEVAQUIN 500 MG/D5W 500 MG/100 ML IVPB IV SCH ×2 (13:17→17:01)
[2018-07-09] MEDS: TRANSDERM-SCOP TD SCH (13:17)
--- NOTE | 2018-07-09 14:22 | INFECTIOUS DISEASE PROGRESS NO ---
DATE: 07/09/2018 PRESENT ILLNESS: The patient has: 1. Klebsiella bacteremia which could have arisen either from her Port-A-Cath or her abdomen. 2. The patient has Staphylococcus aureus pneumonia in the left lower lobe. Unfortunately, the patient is having intractable nausea and vomiting. I stopped the Rocephin yesterday to see if it was causing it and thus far, even being off of Rocephin, the patient still is having nausea and vomiting. MEDICATIONS: Yesterday was the 8th day of treatment with Rocephin. I started, yesterday, the patient on Levaquin and today is day 1 of treatment with Levaquin. The patient's vancomycin is treating possible methicillin-resistant Staphylococcus aureus pneumonia. This is day 8 with treatment with that antibiotic. PHYSICAL EXAMINATION: Vital Signs: Temperature is 97.6 degrees, pulse 82, respirations 18, blood pressure 143/66. General: This is an obese, ill-appearing, middle-aged female. She is in no acute distress but she does not look like she is feeling good at all. Head, Eyes, Ears, Nose, and Throat: She can hear my spoken words and see near objects. Mucous membranes are moist. There are no white patches on her tongue. Thorax: The patient has a Port-A-Cath present on the right side. The site is not swollen or erythematous. Abdomen: Soft and nontender. Cardiovascular: Heart rate is regular. Neurologic: The patient is awake. She can move her extremities. She does not have a tremor. LAB AND X-RAY: Chest x-ray shows left lower lobe pneumonia. The patient's creatinine is 1.3. GFR is 42. CBC shows a white count of 4760, hemoglobin 9, platelet count 171,000. ASSESSMENT AND PLAN: The patient has a Klebsiella bacteremia which now is being treated by Levaquin. The patient also appears to have methicillin-resistant Staphylococcus aureus pneumonia, which is being treated currently by vancomycin. The patient continues to have vomiting. Dr. Timmons has placed a scopolamine patch on the patient and hopefully this will improve the nausea and vomiting. I had stopped Rocephin yesterday and started the patient on Levaquin. At least, so far, it does not seem that has helped the patient's nausea and vomiting. If tomorrow, the patient is still having nausea and vomiting, then I will go ahead and stop vancomycin in case it is causing that and probably going to use Zyvox in place of the vancomycin. COMORBIDITIES: Unfortunately, she has appendiceal cancer for which she has received chemotherapy. cc: Yousif Lewis MD
--- NOTE | 2018-07-09 16:20 | PROGRESS NOTE ---
DATE: 07/09/2018 SUBJECTIVE: The patient resting in bed. OBJECTIVE: Vital signs: Temperature 97.9 degrees, pulse 81, respiratory rate 16, blood pressure 143/67, oxygen saturation is 93%. HEENT: Atraumatic, normocephalic. Cardiovascular System: S1, S2. Respiratory system has evidence of good entry bilaterally. Abdomen is soft, nontender. No masses felt. Extremities: No evidence of edema. Central nervous system: No obvious focal deficit noted. LABORATORY DATA: WBC 4.76, hematocrit 30.6, platelet count of 171. Sodium 145, potassium 2.9, chloride 99, bicarbonate 33, BUN is 5, creatinine 1.3. ASSESSMENT AND PLAN: 1. Hypernatremia, improved. The patient on hypotonic solution. 2. Acute kidney injury. Renal function improving. 3. Methicillin-resistant Staphylococcus aureus pneumonia. Continue antibiotics as recommended by Infectious Disease. 4. Klebsiella bacteremia. Continue antibiotics. 5. Appendiceal carcinoma. Status post chemotherapy. Aware. 6. Anemia. Follow up on hemoglobin, hematocrit. Transfuse PRBCs as needed. 7. Hypokalemia. Replace potassium level. Check magnesium level. DISPOSITION: The patient will probably be going home with home health services. I anticipate possible discharge in the next couple of days. cc: Jason Bullock MD MTDD
[2018-07-09] MEDS: REGLAN PO SCH ×2 (17:00→21:37)
--- NOTE | 2018-07-09 21:38 | Diag Imaging Result Doc PS360 ---
EXAM: CT ABDOMEN/PELVIS W/O CONTRAST HISTORY: GI bleed TECHNIQUE: CT abdomen and pelvis without contrast COMPARISON: 06/28/2018 FINDINGS: small left pleural effusion. It has slightly decreased in size. Left posterior infiltrates or atelectasis is less pronounced. There is a small amount of fluid about the liver. The gallbladder has been removed. The spleen remains enlarged. No focal hepatic abnormality identified on this noncontrasted exam. Normal pancreas and adrenal glands. Small hemorrhagic right renal cyst measuring 8 mm. Large lower pole renal cyst is unchanged. No renal stones or hydronephrosis. Normal aorta. No bowel obstruction. Moderate fluid in the pelvis similar to the prior study. The urinary bladder is moderately distended. Normal uterus. There are sutures in the mid right abdomen. IMPRESSION: 1. Minimal improvement in the left lung base. 2. Tiny right renal hemorrhagic cyst. No other interval change. This exam was performed using automated exposure control, adjustment of mA or kV according to patient size, and/or use of iterative reconstruction technique. Electronically signed by Eligio Tripatih 07/09/2018 9:35 PM
[2018-07-10] MEDS: PHENERGAN IV PRN ×2 (00:21→14:33)
[2018-07-10] MEDS: CARAFATE LIQUID PO SCH ×4 (01:14→15:52)
[2018-07-10] MEDS: PERICOLACE PO SCH ×3 (01:14→20:28)
[2018-07-10] MEDS: PROTONIX IV SCH ×2 (01:14→10:23)
[2018-07-10] MEDS: DITROPAN PO SCH ×3 (01:15→20:28)
[2018-07-10] MEDS: DULCOLAX PR SCH ×2 (01:15→20:28)
[2018-07-10] MEDS: COLACE PO SCH ×2 (01:15→13:46)
[2018-07-10] MEDS: D5W 1,000 ML IV SCH (03:49)
[2018-07-10] MEDS: SYNTHROID PO SCH ×2 (05:17→13:47)
[2018-07-10] MEDS: REGLAN PO SCH ×5 (05:17→20:25)
[2018-07-10] MEDS: ZOFRAN IV SCH ×5 (05:17→19:54)
[2018-07-10 07:57] LABS: HEMATOCRIT 31.7 % (37.0-47.0); HEMOGLOBIN 9.6 g/dL (12.0-16.0); MCH 26.2 PG (27-31); MCHC 30.3 g/dL (33-37); MCV 86.6 FL (81-99); MPV 9.4 FL (7.4-10.4); RBC 3.66 XMIL (4.2-5.4); RDW 19.6 % (11.5-14.5); WBC 5.59 X1000 (4.8-10.8)
[2018-07-10 08:28] LABS: ALBUMIN 3.4 g/dL (3.5-5.0); CALCIUM 8.7 mg/dL (8.8-10.2); CREATININE 1.3 mg/dL (0.5-0.9); PHOSPHORUS 2.3 mg/dL (2.7-4.5); POTASSIUM 3.1 mmol/L (3.5-5.1)
--- NOTE | 2018-07-10 08:47 | NEPHROLOGY PROGRESS NOTE ---
DATE: 07/10/2018 SUBJECTIVE: Patient with no complaints overnight. OBJECTIVE: Vital Signs: Temperature 97.9 degrees, pulse 79, respiratory rate 20, blood pressure 134/60, intake 2.1 L. Output 2.8 L. PHYSICAL EXAMINATION: General: This is a middle-aged female, resting in bed. She is in no acute distress. HEENT: Normocephalic, atraumatic. MARILYN. Oral mucosa moist. Neck: Supple. There is no JVD in a reclined position. Cardiovascular: Reveals a regular rate and rhythm. Pulmonary: She is clear bilaterally. She is on O2 supplementation via nasal cannula. Abdomen: Soft, with positive bowel sounds. : She is voiding. Extremities: She has trace edema. No clubbing or cyanosis. Integumentary: Skin is pale, warm, and dry. Neurologic: Grossly nonfocal. LABORATORY DATA: 1. WBC of 5.5, hemoglobin 9.6. Her chemistries are pending. 2. CT abdomen and pelvis without contrast was noted to have a continued small left pleural effusion with minimal improvement. She continues with a small hemorrhagic right renal cyst. No hydronephrosis. ASSESSMENT AND PLAN: 1. Hypernatremia. The patient has been treated with D5 over the last 24+ hours. Her sodium results are pending. Her urine output has been adequate. If her electrolytes are back in target today, she can stop the IV fluid. 2. Acute kidney injury. Again, labs are pending. Anticipate she will have continued improvement. 3. Anemia, hyperkalemia. She continues with negative territory fluid volume. 4. Methicillin-resistant Staphylococcus aureus pneumonia, on appropriately dosed antibiotics. 5. Klebsiella bacteremia. No changes needed. 6. Appendiceal carcinoma followed by primary. Dictated by HUSAM Rangel for Rogelio Elder MD Face to face encounter, data reviewed, discussed with Minal Posada on 07/10/18. I agree with the above assessment and plan of care. cc: Rogelio Elder MD [facility]
[2018-07-10] MEDS: SODIUM CHLORIDE 0.9% INJ SCH (10:23)
[2018-07-10] MEDS: VANCOMYCIN 2,000 MG in NS 500 ML IV SCH (10:23)
[2018-07-10] MEDS: LASIX IV SCH (10:23)
[2018-07-10] MEDS ORDERED: POTASSIUM CHLORIDE 40 MEQ/SWI 40 MEQ/100 ML IVPB IV ONE (12:03)
[2018-07-10] MEDS ORDERED: POTASSIUM PHOSPHATE 40 MEQ in NS 250 ML IV ONE (12:04)
--- NOTE | 2018-07-10 12:26 | PROGRESS NOTE ---
DATE: 07/10/2018 SUBJECTIVE: Patient resting comfortably. She feels better today. OBJECTIVE: Vital Signs: Vital signs are as follows: Temperature is 98.3 degrees, pulse is 80, respirations 18, blood pressure 134/61, oxygen saturation 91%. HEENT: She is atraumatic, normocephalic. Cardiovascular system: S1, S2. Respiratory system: Has evidence of good air entry bilaterally. Abdomen: Soft, nontender. No masses felt. Extremities: No evidence of edema. Central nervous system: No obvious focal deficits noted. LABS: Labs are as follows: WBC is 5.59, hematocrit is 31.7 with a platelet count of 182. Sodium is 134, potassium 3.1, chloride is 93, bicarbonate is 32. BUN is 66, creatinine is 1.3, phosphorus is 2.3, calcium is 8.7. ASSESSMENT AND PLAN: 1. Hypernatremia. This is now resolved. We will discontinue hypotonic solution. 2. Acute kidney injury. Renal function seems to have plateau 'd. We will continue to follow up on renal profile. The patient is being followed up by the Nephrology team. 3. Methicillin-resistant Staphylococcus aureus pneumonia. Antibiotics continued per Infectious Disease. 4. Klebsiella bacteremia. Continue antibiotics. 5. Appendiceal carcinoma. Status post chemotherapy. 6. Anemia. Follow up on hemoglobin, hematocrit. Transfuse packed red blood cells as needed. 7. Hypokalemia. Replace potassium level. DISPOSITION: The patient will probably be going home with home health services when ready for discharge. cc: Jason Bullock MD
[2018-07-10] MEDS: MIRALAX PO SCH (13:46)
[2018-07-10] MEDS: MUCINEX PO SCH (13:46)
[2018-07-10] MEDS: SODIUM CHLORIDE 0.9% INJ PRN (14:33)
--- NOTE | 2018-07-10 18:44 | INFECTIOUS DISEASE PROGRESS NO ---
DATE: 07/10/2018 PRESENT ILLNESS: The patient has a Klebsiella bacteremia which could have arisen from her Port-A- Cath or her abdomen. She has a Staph aureus pneumonia in the left lower lobe. The patient also had intractable nausea and vomiting, but since getting the scopolamine patch ordered by Dr. Timmons, she is feeling better and has only vomited once today. MEDICATIONS: This is day 1 of treatment with Levaquin and day 3 of treatment with vancomycin. PHYSICAL EXAMINATION: Vital Signs: Temperature is 98, pulse 82, respirations 18, blood pressure 127/57. General: This is a somewhat ill-appearing, middle-aged female. She is in no acute distress. HEENT: She can hear my spoken words and see near objects. She does not have any white coating on her tongue. Neck: No pain when she moves her head. Lungs: Clear to auscultation. Cardiovascular: Heart rate is regular. Abdomen: Soft and not tender. The patient's incision is intact. Neurologic: The patient is alert. She can move her extremities. There is no tremor. Thorax: The patient has a right-sided Port-A-Cath. The site is not swollen or erythematous. LAB AND X-RAY: CT scan of the abdomen showed no abscess, and it did show an improvement in the left lower lobe infiltrate. The CBC showed a white count of 5590, hemoglobin 9.6, and platelet count 182,000. Creatinine is 1.3 GFR is 42. ASSESSMENT AND PLAN: The patient has a Klebsiella bacteremia which is being treated by Levaquin and vancomycin, and methicillin-resistant Staph aureus pneumonia being treated with vancomycin. Today, she seems improved quite a bit. I think the scopolamine patch ordered by Dr. Timmons has stopped the patient's intractable nausea and vomiting. My plan would be to continue vancomycin and Levaquin and the scopolamine patch. COMORBIDITIES: She has appendiceal cancer. cc: Yousif Lewis MD
[2018-07-10] MEDS: LEVAQUIN 500 MG/D5W 500 MG/100 ML IVPB IV SCH (20:25)
--- NOTE | 2018-07-10 22:40 | PROVIDER PROGRESS NOTE ---
Progress Note SUBJECTIVE: No acute overnight events. Patient reports improvement in nausea and vomiting after starting reglan. She is tolerating clears, but is taking in minimal fluids. +BM that are brown. Abdominal pain is stable OBJECTIVE: Last Vital Signs Temp 97.9 F 07/10/18 20:00 Pulse 82 07/10/18 20:00 Resp 18 07/10/18 13:59 BP 128/55 07/10/18 20:00 Pulse Ox 96 07/10/18 20:00 Height 5 ft 5 in Weight 232 lb 9.403 oz GEN: awake, alert, NAD HEENT: anicteric, MMM, EOMI NECK: supple, no jvd PULM: normal WOB CV: RRR ABD: obese, incision c/d/i, BS present. minimal TTP throughout EXT: no cce NEURO: nonfocal LABS: 07/10/18 07/10/18 07:35 07:35 WBC 5.59 Hgb 9.6 L Plt Count 182 Sodium 134 L Potassium 3.1 L Chloride 93 L Carbon Dioxide 32 BUN 6 L Creatinine 1.3 H Glucose 104 BC with K pneumo, repeat BCx2 NGTD MRSA in sputum EXAM: CT ABDOMEN/PELVIS W/O CONTRAST 07/09/2018 FINDINGS: small left pleural effusion. It has slightly decreased in size. Left posterior infiltrates or atelectasis is less pronounced. There is a small amount of fluid about the liver. The gallbladder has been removed. The spleen remains enlarged. No focal hepatic abnormality identified on this noncontrasted exam. Normal pancreas and adrenal glands. Small hemorrhagic right renal cyst measuring 8 mm. Large lower pole renal cyst is unchanged. No renal stones or hydronephrosis. Normal aorta. No bowel obstruction. Moderate fluid in the pelvis similar to the prior study. The urinary bladder is moderately distended. Normal uterus. There are sutures in the mid right abdomen. IMPRESSION: 1. Minimal improvement in the left lung base. 2. Tiny right renal hemorrhagic cyst. No other interval change. ASSESSMENT PLAN: Ms. 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 GI consulted for question GI bleeding given abdominal pain and dark stools. She has had continued intractable nausea and vomiting despite antiemetics and PPI. EGD on 07/05 showed mild diffused non-H pylori gastritis. Repeat CT/AP showed left LL infiltrates vs pneumonia and stable post surgical changes. #Intractable nausea and vomiting: controlled; continue antiemetics prn; suspect decreased motility given improvement with reglan #Hypokalemia: replete K prn #Anemia: stable; no overt bleeding; continue iron replacement therapy, PPI: trending H/H daily #K. pneumoniae bacteremia and MRSA PNA: on abx as per ID #Appendiceal carcinoma followed by Dr. Capone; appreciate, recommendations. #Protein calorie malnutrition: on full liquid diet; advance diet as tolerated; appreciate dietitian recommendations Will follow with you. Please call with questions
[2018-07-11] MEDS: PHENERGAN IV PRN ×2 (00:27→22:53)
[2018-07-11] MEDS: PROTONIX IV SCH ×4 (00:28→22:46)
[2018-07-11] MEDS: SODIUM CHLORIDE 0.9% INJ SCH ×3 (00:28→22:53)
[2018-07-11] MEDS: CARAFATE LIQUID PO SCH ×5 (00:33→22:45)
[2018-07-11] MEDS: COLACE PO SCH ×3 (00:33→22:46)
[2018-07-11] MEDS: SYNTHROID PO SCH (06:44)
[2018-07-11] MEDS: ZOFRAN IV SCH ×3 (06:44→16:40)
[2018-07-11] MEDS: REGLAN PO SCH ×4 (06:44→22:45)
[2018-07-11] MEDS: MIRALAX PO SCH (09:00)
[2018-07-11] MEDS: LASIX IV SCH (09:22)
[2018-07-11] MEDS: MUCINEX PO SCH (09:22)
[2018-07-11] MEDS: PERICOLACE PO SCH ×2 (09:22→22:46)
[2018-07-11] MEDS: DITROPAN PO SCH ×2 (09:24→22:45)
--- NOTE | 2018-07-11 12:34 | GASTROENTEROLOGY PROGRESS NOTE ---
DATE: 07/11/2018 SUBJECTIVE: Patient is resting in bed. She is feeling better this morning. She has mild nausea. She has not thrown up today. She denies any abdominal pain. She has not moved her bowels today. The last bowel movement was yesterday which was soft and liquidy. OBJECTIVE: Vitals: Temperature 98.5 degrees, pulse rate of 84, respiratory rate 20, blood pressure 122/58, saturating 94% on room air. Weight: Body weight of 232 pounds 9.4 ounces, BMI of 38 kg/m2. General: The patient is obese, lying in bed, in no acute distress. HEENT: Pale conjunctivae. No icterus. Neck: Supple. Abdomen: Healing scar madiha in the mid abdomen from recent surgery. No rebound or guarding. Nontender. Extremities: No cyanosis, clubbing. Neurologic: She is alert, awake, oriented x3. DIAGNOSTIC STUDIES: Hemoglobin 9.2, hematocrit 31.7, white count of 5.5, platelet count of 182. Sodium 134, potassium 3.1, chloride 93, anion gap 9, BUN of 6, creatinine 1.3, glucose of 104, calcium 8.7, phosphorus 2.3, magnesium from yesterday 1.9, albumin of 3.4. Blood culture x2 negative after 5 days on 07/02/2018. IMPRESSION AND PLAN: 1. Intractable nausea/vomiting is improved. She will continue on IV antiemetics. She has been started on Reglan. She will continue Reglan for now, and she will hold Reglan for side effects like tardive dyskinesia or dystonia. 2. Electrolyte imbalance. Being managed by the primary team. 3. Anemia. Continue to watch for now. Transfuse as needed. 4. Gastrointestinal prophylaxis. PPIs. 5. Klebsiella pneumoniae bacteremia and methicillin-resistant Staphylococcus aureus pneumonia. She is on antibiotics per Infectious Disease. 6. Appendiceal carcinoma status post laparotomy and intraperitoneal chemotherapy. This is being followed by Dr. Delores Capone. 7. Protein-calorie malnutrition. She will continue on full liquid diet and advance as tolerated. 8. 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 This will be followed as an outpatient with Dr. Delores Capone. 9. Constipation is improved. 10. She will continue on gentle bowel regimen, and she will hold laxatives if she is having more than 3 bowel movements in 24 hours. Above plan of care was discussed with the patient, and all questions were answered. Please call us with any further questions. cc: MD Ric Higgins MD Heather Shah, MD MTDD
--- NOTE | 2018-07-11 12:50 | NEPHROLOGY PROGRESS NOTE ---
DATE: 07/11/2018 SUBJECTIVE: She states she is about the same today. No real swelling, no nausea shortness of breath, etc. OBJECTIVE: Vital Signs: Blood pressure 117/52, heart rate 80, respirations 20, afebrile. Intake 1.6 L. Output 2.1 L. PHYSICAL EXAMINATION: General: No acute distress. Skin: Warm and dry. HEENT: Conjunctivae are pink. Neck: Neck veins are not distended. Heart: Regular. Lungs: Equal. No crackles. Abdomen: Soft, nontender. Bowel sounds present. Extremities: Trace edema. No clubbing or cyanosis. IMPRESSION: 1. Acute kidney injury. No new data today but her labs have been improving. She is off of IV fluids and off of Lasix. 2. I will sign off at this time. If we can be of further assistance, please do not hesitate to call. cc: Rogelio Elder MD
--- NOTE | 2018-07-11 13:22 | PROGRESS NOTE ---
DATE: 07/11/2018 SUBJECTIVE: Patient resting comfortably in bed. She seems to be doing better. OBJECTIVE: Vital Signs: Temperature 98.5 degrees, pulse 80, respirations 20, blood pressure 117/52, oxygen saturation is 96%. HEENT: Atraumatic, normocephalic. Cardiovascular: S1, S2. Respiratory: Has evidence of good air entry bilaterally. Abdomen: Soft, nontender. No masses felt. Extremities: No evidence of edema. Central Nervous System: No obvious focal deficit noted. LABORATORY DATA: None. ASSESSMENT AND PLAN: 1. Intractable nausea with vomiting. This has improved. The patient is currently on oral Reglan as well as antiemetics. The patient's diet can now be advanced as tolerated. 2. Hypernatremia. This has resolved. Hypotonic solution discontinued. Will follow up on the patient's sodium level. 3. Acute kidney injury. Follow up on renal function. Nephrology is following. 4. Methicillin-resistance Staphylococcus aureus pneumonia. Continue antibiotics as recommended by Infectious Disease. 5. Klebsiella bacteremia. Continue antibiotics as recommended by Infectious Disease. 6. Appendiceal cancer, status post appendectomy as well as chemotherapy, as well as Hypaque, which is hyperthermic intraperitoneal chemotherapy. Oncology following. 7. Anemia. Follow up on the patient's hemoglobin and hematocrit. Transfuse packed red blood cells as needed. 8. Hypokalemia. Replace potassium accordingly. 9. Disposition. I do anticipate that the patient will be in the hospital for the next couple of days, about 3 to 4 more days, following which she will possibly be going home with Home Health Services. cc: Jason Bullock MD [facility]
[2018-07-11 14:35] LABS: CREATININE 1.3 mg/dL (0.5-0.9)
[2018-07-11 15:12] LABS: BASO# 0.04 X1000 (0.0-0.2); BASO% 0.6 % (0.0-0.8); EOS# 0.11 X1000 (0.0-0.7); EOS% 1.7 % (0.0-10.0); HEMATOCRIT 35.4 % (37.0-47.0); HEMOGLOBIN 10.8 g/dL (12.0-16.0); IMM GRAN# 0.03 X1000 (0.0-0.04); IMM GRAN% 0.5 % (0.0-0.5); LYMPH# 0.63 X1000 (1.2-3.4); LYMPH% 9.8 % (20.5-51.1); MCH 25.8 PG (27-31); MCHC 30.5 g/dL (33-37); MCV 84.7 FL (81-99); MONO# 0.69 X1000 (0.11-0.59); MONO% 10.7 % (1.7-9.3); MPV 9.5 FL (7.4-10.4); NEUT# 4.93 X1000 (1.4-6.5); NEUT% 76.7 % (42.2-75.2); PLT 205 X1000 (130-400); RBC 4.18 XMIL (4.2-5.4); RDW 19.9 % (11.5-14.5); WBC 6.43 X1000 (4.8-10.8)
--- NOTE | 2018-07-11 15:21 | INFECTIOUS DISEASE PROGRESS NO ---
DATE: 07/11/2018 PRESENT ILLNESS: The patient has a Klebsiella bacteremia which could have originated from her Port-A-Cath or her abdomen. She has a methicillin-resistant Staph aureus pneumonia in the left lower lobe which appears to be getting better also. The patient had intractable nausea and vomiting; however, since using the scopolamine that Dr. Timmons ordered, her nausea and vomiting have almost completely cleared. MEDICATIONS: The patient was treated with IV antibiotics for her Klebsiella bacteremia and now she is on p.o. Levaquin. She has had a total of 4 days of treatment for her Klebsiella bacteremia. As regarding the patient's methicillin-resistant Staph aureus pneumonia, the patient has had five days of treatment for that.. PHYSICAL EXAMINATION: Vital Signs: Temperature is 98.5, pulse 80, respirations 20, blood pressure 117/52. General: The patient looks much better than she has in the past few days. She is no longer having intractable nausea and vomiting, and she is eating a bland diet. Head, Eyes, Ears, Nose and Throat: She can hear my spoken words and see near objects. She does not have any white patches on her tongue. Neck: No pain when she moves her head. Lungs: Clear to auscultation. Cardiovascular: Regular heart rate. Abdomen: Soft and nontender. The patient's incision is intact. Neurologic: The patient is alert. She is able to ambulate. There is no tremor. Thorax: The patient has a right-sided Port-A-Cath. The site is not erythematous or draining. LAB AND X-RAY: CBC for today is pending. The creatinine is 1.3. GFR is 42. ASSESSMENT AND PLAN: As regarding the patient's Klebsiella bacteremia, the plan is to send the patient home tomorrow on Levaquin 500 mg daily for 10 days. As regarding the patient's pneumonia, hopefully the pneumonia will be cleared and she will not require any antibiotic for the pneumonia. As regarding her nausea and vomiting, we are going to do the following regimen as suggested by Dr. Ric Timmons. Reglan 10 mg 1 before meals and at bedtime #40, and Transderm-Scope #4 1 every 72 hours. The patient will have a followup with Dr. Timmons in 2 weeks. COMORBIDITIES: She has appendiceal cancer and she has gotten treatment for that. cc: Yousif Lewis MD
[2018-07-11] MEDS: DULCOLAX PR SCH (22:46)
[2018-07-11] MEDS: SODIUM CHLORIDE 0.9% INJ PRN (22:53)
[2018-07-11] MEDS: LEVAQUIN 500 MG/D5W 500 MG/100 ML IVPB IV SCH (22:56)
[2018-07-12] MEDS: CARAFATE LIQUID PO SCH ×3 (02:12→15:07)
[2018-07-12] MEDS: ZOFRAN IV SCH ×2 (06:24→11:46)
[2018-07-12] MEDS: REGLAN PO SCH ×2 (06:24→11:46)
[2018-07-12] MEDS: SYNTHROID PO SCH (06:24)
[2018-07-12 07:01] LABS: BASO# 0.03 X1000 (0.0-0.2); BASO% 0.6 % (0.0-0.8); EOS# 0.12 X1000 (0.0-0.7); EOS% 2.4 % (0.0-10.0); HEMATOCRIT 33.5 % (37.0-47.0); HEMOGLOBIN 10.4 g/dL (12.0-16.0); LYMPH# 0.68 X1000 (1.2-3.4); LYMPH% 13.4 % (20.5-51.1); MCH 26.7 PG (27-31); MCV 86.1 FL (81-99); MONO# 0.74 X1000 (0.11-0.59); MONO% 14.6 % (1.7-9.3); MPV 9.2 FL (7.4-10.4); PLT 167 X1000 (130-400); RBC 3.89 XMIL (4.2-5.4); RDW 19.7 % (11.5-14.5); WBC 5.07 X1000 (4.8-10.8)
[2018-07-12 07:31] LABS: CALCIUM 8.8 mg/dL (8.8-10.2); CREATININE 1.4 mg/dL (0.5-0.9); POTASSIUM 3.1 mmol/L (3.5-5.1)
--- NOTE | 2018-07-12 07:53 | Diag Imaging Result Doc PS360 ---
EXAM: CHEST-1 VIEW INDICATION: pneumonia TECHNIQUE: One view COMPARISON: 07/08/2018 FINDINGS: Right chest port is in stable position. The vague opacity at the medial left lung base appears slightly less prominent. No new consolidation is identified. Cardiac silhouette is stable. IMPRESSION: Improvement in the vague opacity at the medial left lung base. Stable chest, otherwise. Electronically signed by Conor Galaviz 07/12/2018 7:51 AM
[2018-07-12] MEDS: MIRALAX PO SCH (09:19)
[2018-07-12] MEDS: DITROPAN PO SCH (09:19)
[2018-07-12] MEDS: COLACE PO SCH (09:19)
[2018-07-12] MEDS: PERICOLACE PO SCH (09:20)
[2018-07-12] MEDS: PROTONIX IV SCH ×2 (09:21→14:04)
[2018-07-12] MEDS: SODIUM CHLORIDE 0.9% INJ SCH (09:21)
[2018-07-12] MEDS: MUCINEX PO SCH (09:21)
[2018-07-12 11:35] VITALS: BP 134/47
[2018-07-12] MEDS: TRANSDERM-SCOP TD SCH (11:46)
--- NOTE | 2018-07-12 13:36 | DISCHARGE SUMMARY ---
ADMISSION DATE: 06/28/2018 DISCHARGE DATE: 07/12/2018 PRINCIPAL DIAGNOSIS: Methicillin-resistant Staph aureus pneumonia. SECONDARY DIAGNOSES: 1. Klebsiella bacteremia. 2. Hypernatremia. 3. 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 4. Anemia. 5. Hypokalemia. 6. Hypothyroidism. 7. Anxiety disorder. DISCHARGE MEDICATIONS: Include the followin. Reglan 10 mg before meals and at bedtime. 2. Scopolamine transdermal patch every 72 hours. 3. Levofloxacin 500 mg daily. 4. Mucinex 1200 mg p.o. daily. 5. Levothyroxine 100 mg p.o. daily. 6. Oxybutynin 5 mg p.o. twice a day. 7. Oxycodone 1 tablet every 6 hours as needed. 8. MiraLAX 17 g daily. 9. Senna 1 tab twice a day. 10. Zofran 8 mg as needed. 11. Phenergan 25 and 12.5 mg p.o. every 6 hours as needed. 12. Acetaminophen 2 tabs every 8 hours. CONSULTATIONS DONE DURING THIS HOSPITAL STAY: 1. Dr. Yousif Lewis Infectious Disease. 2. Hematology Oncology team 3. Dr. Altaf Guillen, Gastroenterology. SPECIAL PROCEDURES DONE DURING THIS HOSPITAL STAY: 1. Chest, abdomen as well as pelvic CT on 06/28/2018. 2. Upper GI endoscopy with biopsy 07/05/[address] and pelvic CT 07/09/2018. HOSPITAL COURSE: Ms. Makeda Donaldson is a 58-year-old female who has a history of appendiceal cancer status post appendectomy. She has also had 14 cycles of FOLFOX. The patient was admitted to the hospital because of fever along with vomiting and . diarrhea. She was found to have blood cultures positive for Klebsiella pneumonia. She was also noted to have MRSA pneumonia. The patient was placed on antibiotics per recommendations of the Infectious Disease team. She was seen by the GI team because of anemia, and had upper GI endoscopic studies done. The findings shows that there was mild diffuse gastritis with scattered erosions in the antrum. Biopsies were taken. The patient was also seen by the Nephrology team because of hypernatremia. She was also noted to have a period of intractable nausea and vomiting, and she seemed to have responded well to Reglan as well as transdermal scopolamine. At this time, patient has done well. She is stable. She can now be discharged home. PHYSICAL EXAMINATION: During my evaluation today, her vital signs as follows: Temperature 98.2 degrees, pulse is 86, respiratory rate 18, blood pressure 134/47 and oxygen is 98%. HEENT: Atraumatic, normocephalic. Cardiovascular: S1, S2. Respiratory: There is evidence of good air entry bilaterally. Abdomen: Soft, nontender. No masses felt. Extremities: No evidence of edema. Central nervous system: No obvious focal deficit noted. PLAN: Discharge home today to follow up with Oncology team at [facility]. Also, follow up with the local oncologist. Take discharge medications as prescribed by Infectious Disease team specifically her antibiotics. She will need to follow up with her primary care physician in the outpatient. cc: Jason Bullock MD MTDD
--- NOTE | 2018-07-12 13:44 | Extremity Venous Study ---
PROCEDURE NAME: Venous U/S Bilateral Legs - 07/07/2018 REFERRING PHYSICIAN: Joanna Ruvalcaba MD. REFERRING PHYSICIAN: Teja Jimenez MD. BACK MAKER: Gerry. INDICATION: Leg swelling. FINDINGS: The deep and superficial veins of each lower extremity were imaged throughout their course. They are compressible, patent without thrombus. INTERPRETATION: No DVT or SVT of either lower extremity. cc: MD Joanna Rothman MD
--- NOTE | 2018-07-12 16:02 | PROVIDER PROGRESS NOTE ---
Progress Note SUBJECTIVE: No acute overnight events. Afebrile. No N/V, CP, SOB, abdominal pain. +BMs. She is tolerating regular diet and requesting discharge OBJECTIVE: Last Vital Signs Temp 98.2 F 07/12/18 11:33 Pulse 78 07/12/18 12:11 Resp 18 07/12/18 11:33 BP 134/47 07/12/18 11:33 Pulse Ox 97 07/12/18 12:11 Height 5 ft 5 in Weight 232 lb 9.403 oz GEN: awake, alert, NAD HEENT: anicteric, MMM, EOMI NECK: supple, no jvd PULM: normal WOB CV: RRR ABD: obese, incision c/d/i, BS present. minimal TTP throughout EXT: no cce NEURO: nonfocal LABS: 07/12/18 07/12/18 06:29 06:29 WBC 5.07 Hgb 10.4 L Plt Count 167 Sodium 135 L Potassium 3.1 L Chloride 93 L Carbon Dioxide 32 BUN 11 Creatinine 1.4 H Glucose 94 ASSESSMENT PLAN: Ms. 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 GI consulted for question GI bleeding given abdominal pain and dark stools. Her nausea and vomiting resolved with reglan and PPI. EGD on 07/05 showed mild diffused non-H pylori gastritis. Repeat CT/AP showed left LL infiltrates vs pneumonia and stable post surgical changes. #Intractable nausea and vomiting: resolved; continue reglan as needed #Anemia: stable; no overt bleeding; continue iron replacement therapy, PPI: trending H/H daily #K. pneumoniae bacteremia and MRSA PNA: on abx as per ID #Appendiceal carcinoma followed by Dr. Capone; appreciate, recommendations. #Protein calorie malnutrition: tolerating regular diet Patient discharged today. Recommended she follow-up in clinic 2-4 weeks after discharge
== END 2018-07-12 15:26 | disposition home health service (06) | DRG 178 ==
LOC: ED 02:57 → EDIPHOLD 02:58 → SUATTDRO 02:58 → 4N 10:13
PROVIDERS: ATTEND Internal Medicine
CPT/HCPCS: 36430; 71010; 71020; 71045; 71046; 71260; 74019; 74020; 74022; 74176; 74177; 76770; 80048; 80053; 80061; 80069; 80202; 81001; 82040; 82270; 82570; 82607; 82728; 82746; 83036; 83540; 83550; 83605; 83721; 83735; 83880; 83935; 84100; 84134; 84156; 84300; 84439; 84443; 84540; 85014; 85018; 85025; 85027; 85610; 85730; 86850; 86870; 86900; 86901; 86920; 86922; 87040; 87045; 87046; 87070; 87077; 87088; 87186; 87205; 87275; 87276; 87324; 87449; 87804; 88305; 88312; 89055; 89220; 93005; 93970; 94640; 94761; 96365; 96367; 96368; 96372; 96375; 96376; 97162; 99285; A9270; C9113; J0330; J0696; J1170; J1650; J1756; J1940; J1956; J2405; J2543; J2550; J3370; J3475; J3480; J7030; J7040; J7050; J7070; P9016; P9047; Q9967; S0164